=== PATIENT | female | born 1940 | race Caucasian/White ===

== ENCOUNTER 2016-10-13 14:35 | Inpatient (IN) | payer MEDICARE, MEDICAID ==
[~2016-10-13] VITALS: Ht 154.9 cm; Wt 93.0 kg
[~2016-10-13 14:35] MED LIST: NKM
[2016-10-13 15:24] VITALS: BP 95/71
--- NOTE | 2016-10-13 16:12 | Diagnostic Imaging Report ---
Indication: SOB Technique: One view of the chest Comparison: 04/25/2008 Findings: There is mild generalized interstitial prominence, which is less striking than that seen on prior study. The heart size is upper limits normal. Pleural spaces are probably clear. Impression: Generalized interstitial prominence. Acuity indeterminate, could represent venous congestion. Correlate with clinical findings.
[2016-10-13 16:26] LABS: ALANINE AMINOTRANSFERASE 16 U/L (3-33); ANION GAP 13 (5-15); ASPARTATE AMINO TRANSFERASE 21 U/L (5-40); CALCIUM 8.7 mg/dL (8.6-10.2); CARBON DIOXIDE 25 mEQ/L (20-30); CHLORIDE 105 mEQ/L (98-107); CREATININE 0.9 mg/dL (0.5-0.9); HEMOLYSIS 12; POTASSIUM 3.9 mEQ/L (3.4-4.9); SODIUM 143 mEQ/L (135-145); TOTAL PROTEIN 6.7 g/dL (6.6-8.7)
[2016-10-13 16:27] LABS: TROPONIN I < 0.30 ng/mL (<=0.30)
[2016-10-13 16:36] LABS: CKMB 3.9 ng/mL (< 3.8)
[2016-10-13 16:51] LABS: BILIRUBIN,DIRECT 0.3 mg/dL (0.1-0.3)
[2016-10-13 17:12] VITALS: BP 115/89
[2016-10-13 17:26] LABS: BASOPHILS % (AUTO) 1.3 % (0.0-2.0); EOSINOPHILS % (AUTO) 0.6 % (0.0-3.0); LYMPHOCYTES % (AUTO) 10.2 % (20.0-45.0); MEAN CORPUSCULAR HEMOGLOBIN 25.9 PG (27.0-31.0); MEAN CORPUSCULAR HGB CONC 30.6 G/DL (32.0-36.0); MEAN CORPUSCULAR VOLUME 85 FL (80-99); MEAN PLATELET VOLUME 7.2 FL (6.5-10.1); MONOCYTES % (AUTO) 8.5 % (1.0-10.0); NEUTROPHILS % (AUTO) 79.3 % (45.0-75.0); PLATELET COUNT 217 K/UL (150-450); RED BLOOD COUNT 4.17 M/UL (4.20-5.40); RED CELL DISTRIBUTION WIDTH 14.7 % (11.6-14.8); WHITE BLOOD COUNT 9.6 K/UL (4.8-10.8)
--- NOTE | 2016-10-13 17:51 | Emergency Room Report ---
History of Present Illness General Chief Complaint: Chest Pain Source: Patient, Medical Record Present Illness HPI 76 YO F sent from PMD's for AFB with RVR to 140s. Patient c/o left sided chest pain and ?SOB. Deneis cough, fever/chills. Feels well otherwise. Not providing additional HPI at this time. No other info from EMS. No family present. Known Atrial Fib. Allergies: Coded Allergies: No Known Allergies (Verified , 04/16/08) Patient History Past Medical History: arrhyth Past Surgical History: unable to obtain Pertinent Family History: unable to obtain Social History: Denies: alcohol use, drug use, smoking Immunizations: UTD Reviewed Nursing Documentation: PMH: Agreed, PSxH: Agreed Nursing Documentation-PMH Past Medical History Deferred: No Family Available Past Medical History: No History, Except For Hx Cardiac Problems: Yes - high cholesterol, CHF Review of Systems All Other Systems: negative except mentioned in HPI Physical Exam Vital Signs Date Time Temp Pulse Resp B/P Pulse Ox O2 Delivery O2 Flow Rate FiO2 10/13/16 14:32 97.5 76 16 112/87 98 Room Air 10/13/16 16:30 15.0 30 Sp02 EP Interpretation: reviewed, abnormal General Appearance: no apparent distress, alert, GCS 15, non-toxic, mild distress Head: normocephalic, atraumatic Eyes: bilateral eye EOMI, bilateral eye PERRL, bilateral eye normal inspection ENT: normal ENT inspection, hearing grossly normal, normal voice Neck: normal inspection, full range of motion, supple, no bony tend Respiratory: normal inspection, no respiratory distress, no retraction, no accessory muscle use, no wheezing, rales Cardiovascular #1: no edema, no gallop, no JVD, irregularly irregular Gastrointestinal: normal inspection, normal bowel sounds, non tender, soft, no guarding, no hernia Genitourinary: no CVA tenderness Musculoskeletal: normal inspection, back normal, normal range of motion, Dawit' s Sign negative Neurologic: normal inspection, alert, oriented x3, responsive, 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, motor strength/tone normal, speech normal Psychiatric: normal inspection, judgement/insight normal, mood/affect normal Skin: normal inspection, normal color, no rash Procedures Critical Care Time Critical Care Time CC time of 45 minutes for this 76 YOF in Atrial fib with RVR with SOB and left sided chest pain DDx includes COPD exacerbation, ACS, PNA, acute on chronic CHF Presents acute SOB warm, chest pain VS significant for hypotension, atrial fib to 110 Patient immediately placed on front desk monitor with rhytm strip and STAT EKG was obtained which showed Atrial Fib and V4-6 ST depressions No hypoxia. Afebrile. Lungs with pulm congestion on exam Initial management indicated: CBC, CMP, troponin, BNP, CXR, BIPAP Highly suspected: CHF exacerbation d/t run of Atrial fib with RVR Possible interventions - BIPAP, additional Abx. CC time included frequent re-exams, interpretation of labs, imaging, adjustment of Abx Critical care time of 45 minutes does not include reportable procedures. Medical Decision Making Medicare Attestation I Jodie Blackwell MD hereby attest that the medical record entry for date of service, 08/23/16 accurately reflects signatures/notations that I made in my capacity as MD when I treated/diagnosed the above listed Medicare beneficiary. I attest that this information is true, accurate and complete to the best of my knowledge. I understand that any falsification, omission, or concealment of material fact may subject me to administrative, civil, or criminal liability. This patient warrants hospital admission for extreme of age and has a condition that cannot be treated as outpatient. Diagnostic Impression: Primary Impression: Atrial fibrillation Qualified Codes: I48.2 - Chronic atrial fibrillation Additional Impressions: Hypotension Qualified Codes: I95.9 - Hypotension, unspecified CHF (congestive heart failure) Qualified Codes: I50.9 - Heart failure, unspecified ER Course 76 YO F with run of Atrial fib with RVR and possible ischemia on ECG. Now hypotensive. Not in RVR. Afebrile. Improved with Bipap CXR shows ?pulm congestion. No obvious PNA Initial troponin 0. Endorsed to Dr Godwin for [facility] admission at 530pm EKG Diagnostic Results Rate: other - Atrial fib, ST depressions in lateral leads ST Segments: no acute changes ASA given to the pt in ED: No Rhythm Strip Diag. Results EP Interpretation: yes Rate: 110 Rhythm: no ectopy, other - PVCs Chest X-Ray Diagnostic Results EP Interpretation: Yes Findings: no pneumothorax, no acute cardiopulmonary disease, other - bilateral pulm vascular congestion Last Vital Signs Date Time Temp Pulse Resp B/P Pulse Ox O2 Delivery O2 Flow Rate FiO2 10/13/16 17:38 97.5 124 16 115/89 100 Bi-pap 15.0 30 Disposition: ADMITTED INPATIENT Condition: Critical Referrals: NON PHYSICIAN (PCP) JODIE BLACKWELL M.D. Oct 13, 2016 17:51
[2016-10-13] MEDS ORDERED: EDARBI80 MG ORAL (18:57)
[2016-10-13] MEDS ORDERED: AMIODARONE HCL100 MG ORAL (18:58)
[2016-10-13] MEDS ORDERED: BYSTOLIC5 MG ORAL (18:58)
[2016-10-13] MEDS ORDERED: XARELTO20 MG ORAL (19:00)
[2016-10-13] MEDS ORDERED: ABILIFY10 MG ORAL (19:00)
[2016-10-13] MEDS ORDERED: LEVOTHYROXINE100 MCG ORAL (19:00)
[2016-10-13] MEDS ORDERED: NORVASC2.5 MG ORAL (19:01)
--- NOTE | 2016-10-13 19:29 | History and Physical ---
History of Present Illness General Date patient seen: Oct 13, 2016 Time patient seen: 19:27 Reason for Hospitalization: Chest Pain Present Illness HPI 76 YO F with a fib sent from PMD's for AFB with RVR to 140s. Patient c/o left sided chest pain and SOB. Deneis cough, fever/chills. Feels well otherwise. Allergies: Coded Allergies: No Known Allergies (Verified , 04/16/08) Medication History Scheduled Amiodarone Hcl (Amiodarone Hcl), 100 MG ORAL EVERY 8 HOURS, (Reported) Amlodipine Besylate (Norvasc), 2.5 MG ORAL DAILY, (Reported) Aripiprazole* (Abilify*), 10 MG ORAL DAILY, (Reported) Azilsartan Medoxomil (Edarbi), 80 MG ORAL DAILY, (Reported) Levothyroxine Sodium* (Levothyroxine Sodium*), 100 MCG ORAL DAILY, (Reported) Nebivolol Hcl (Bystolic), 5 MG ORAL DAILY, (Reported) No Known Medications* (NKM - No Known Medications*), 0 ., (Reported) Miscellaneous Medications Rivaroxaban (Xarelto), 20 MG ORAL, (Reported) Patient History Healthcare decision maker Resuscitation status Full Code Advanced Directive on File Past Medical/Surgical History Past Medical/Surgical History: (1) Atrial fibrillation (2) CHF (congestive heart failure) Family History Family History: Patient reports no known family medical history. Social History Social History: (1) No significant social history Review of Systems All Other Systems: negative except mentioned in HPI Physical Exam General Appearance: no apparent distress, alert HEENT: normocephalic, atraumatic, anicteric, mucous membranes moist, PERRL, EOMI, pharynx normal, no JVD Neck: non-tender, supple Respiratory/Chest: lungs clear, normal breath sounds, no respiratory distress, no accessory muscle use Cardiovascular/Chest: normal peripheral pulses, normal rate, regular rhythm Abdomen: normal bowel sounds, non tender, soft, no mass Extremities: non-tender, normal inspection Skin Exam: warm/dry 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, no motor/sensory deficits, alert Musculoskeletal: normal muscle bulk Last 24 Hour Vital Signs Date Time Temp Pulse Resp B/P Pulse Ox O2 Delivery O2 Flow Rate FiO2 10/13/16 19:20 141 19 100 Facial 30 10/13/16 18:30 30 10/13/16 17:38 97.5 124 16 115/89 100 Bi-pap 15.0 30 10/13/16 17:12 97.5 124 16 115/89 100 Bi-pap 30 10/13/16 16:42 30 10/13/16 16:30 71 18 100 Facial 15.0 30 10/13/16 16:30 71 18 Bi-pap 15.0 30 10/13/16 15:24 110 16 95/71 97 Room Air 10/13/16 15:08 76 16 Room Air 10/13/16 14:32 97.5 76 16 112/87 98 Room Air Laboratory Tests Test 10/13/16 15:38 White Blood Count 9.6 K/UL (4.8-10.8) Red Blood Count 4.17 M/UL (4.20-5.40) L Hemoglobin 10.8 G/DL (12.0-16.0) L Hematocrit 35.2 % (37.0-47.0) L Mean Corpuscular Volume 85 FL (80-99) Mean Corpuscular Hemoglobin 25.9 PG (27.0-31.0) L Mean Corpuscular Hemoglobin Concent 30.6 G/DL (32.0-36.0) L Red Cell Distribution Width 14.7 % (11.6-14.8) Platelet Count 217 K/UL (150-450) Mean Platelet Volume 7.2 FL (6.5-10.1) Neutrophils (%) (Auto) 79.3 % (45.0-75.0) H Lymphocytes (%) (Auto) 10.2 % (20.0-45.0) L Monocytes (%) (Auto) 8.5 % (1.0-10.0) Eosinophils (%) (Auto) 0.6 % (0.0-3.0) Basophils (%) (Auto) 1.3 % (0.0-2.0) Sodium Level 143 mEQ/L (135-145) Potassium Level 3.9 mEQ/L (3.4-4.9) Chloride Level 105 mEQ/L (98-107) Carbon Dioxide Level 25 mEQ/L (20-30) Anion Gap 13 (5-15) Blood Urea Nitrogen 22 mg/dL (7-23) Creatinine 0.9 mg/dL (0.5-0.9) Estimat Glomerular Filtration Rate mL/min (>60) Glucose Level 108 mg/dL (74-106) H Calcium Level 8.7 mg/dL (8.6-10.2) Total Bilirubin 1.3 mg/dL (0.0-1.2) H Direct Bilirubin 0.3 mg/dL (0.1-0.3) Aspartate Amino Transf (AST/SGOT) 21 U/L (5-40) Alanine Aminotransferase (ALT/SGPT) 16 U/L (3-33) Alkaline Phosphatase 98 U/L (35-104) Total Creatine Kinase 87 U/L (26-140) Creatine Kinase MB 3.9 ng/mL (< 3.8) H Creatine Kinase MB Relative Index 4.4 Troponin I < 0.30 ng/mL (<=0.30) Total Protein 6.7 g/dL (6.6-8.7) Albumin 3.4 g/dL (3.5-5.2) L Globulin 3.3 g/dL Albumin/Globulin Ratio 1.0 (1.0-2.7) Height (Feet): 5 Height (Inches): 2.00 Weight (Pounds): 160 Assessment/Plan Problem List: (1) Atrial fibrillation ICD Codes: I48.91 - Unspecified atrial fibrillation SNOMED: 35171924 Qualifiers: Qualified Codes: I48.2 - Chronic atrial fibrillation (2) CHF (congestive heart failure) ICD Codes: I50.9 - Heart failure, unspecified SNOMED: 19650058 Qualifiers: Qualified Codes: I50.9 - Heart failure, unspecified (3) Hypotension ICD Codes: I95.9 - Hypotension, unspecified SNOMED: 75895072 Qualifiers: Qualified Codes: I95.9 - Hypotension, unspecified (4) Hypothyroidism ICD Codes: E03.9 - Hypothyroidism, unspecified SNOMED: 49042520 Status: progressing Assessment/Plan admit to [facility] telemetry monitoring f/u Cards cont amio cont Levo Partha Miller M.D. Oct 13, 2016 19:29
[2016-10-13 20:00] VITALS: BP 115/31
--- NOTE | 2016-10-13 20:27 | Consultation ---
Consult Note Consult Note Cardiology/ Cardiac EP for Dr Hightower Full consult dictated #[id number] 76 yo wf w/ hx of htn, morbid obesity and stage III ovarian CA also ? of PAF ( on xarelto and amiodarone at home) adm w/ 2-3 wk progressive dyspnea, LE edema as well as 2-3 d CP She is in CHF (? diastolic v systolic dysfunction) and rapid AF. Initial troponin negative REc: adm to telemetry. Lasix iv for pulm congestion. Inc amiodarone for rate control and poss conversion to SR. Continue bystolic .Continue Xarelto for CVA prevention. Check serial trop, ekgs to r/o mi, though doubt ACS. ECHO to assess LV systolic function. Supplemental 02/ bipap. TRAVON CAGLE Oct 13, 2016 20:27
[2016-10-13] MEDS: Amiodarone 200mg tab ORAL SCH (21:33)
[2016-10-14] VITALS (7 sets, daily range): BP systolic 104–137; BP diastolic 64–92
--- NOTE | 2016-10-14 01:28 | Consultation ---
DATE OF CONSULTATION: CARDIOLOGY CONSULT CONSULTING PHYSICIAN: Nereida Gutierrez M.D. REASON FOR CONSULT: Atrial fibrillation with rapid ventricular rate and shortness of breath. HISTORY OF PRESENT ILLNESS: The patient is a 76-year-old [place] woman (history obtained from current and previous chart and the patient's son) with a history of hypertension, schizophrenia, hypothyroidism, and possible paroxysmal atrial fibrillation. Her son states that over the past two to three weeks, she has been increasingly short of breath and also developing bilateral lower extremity edema. She has had chest pain over about the past three days. In addition, she has had diarrhea and loose stools over the past two weeks. No melena or blood per rectum. On presentation to the emergency room, she was in atrial fibrillation with ventricular rates of 140 to 150 beats per minute. She is admitted for further treatment. Cardiology evaluation was requested. MEDICATIONS: At home, Xarelto 20 mg daily, Edarbi 80 mg daily, Bystolic 5 mg daily, amiodarone 200 mg daily, levothyroxine 100 mcg daily, and Abilify 10 mg daily. ALLERGIES: No known drug allergies. PAST MEDICAL HISTORY: As noted above. 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 SOCIAL HISTORY: The patient lives with her son. She is a nonsmoker and does not drink alcohol. PHYSICAL EXAMINATION: VITAL SIGNS: Blood pressure is 115/89, pulse 124, irregularly irregular; respirations 22, and afebrile. GENERAL: Alert, obese white female, on BiPAP mask. HEENT: Normocephalic and atraumatic. Pupils are equal, round, and reactive to light. BiPAP mask in place. NECK: Supple. Jugular venous pressure is elevated. There are no audible carotid bruits. LUNGS: Shallow respirations. Tachypneic. No rales anteriorly or wheezes. HEART: Tachycardic. Irregularly irregular. S1, S2 with no murmur or S3. ABDOMEN: Obese, soft, and nontender. Healed midline surgical scar. EXTREMITIES: A 2 to 3+ pitting pedal to calf edema bilaterally LABORATORY AND DIAGNOSTIC DATA: Chest x-ray shows cardiomegaly and increased interstitial infiltrates bilaterally. EKG shows atrial fibrillation with a ventricular rate of 142 beats per minute, occasional premature ventricular complex or aberrantly conducted complex, nonspecific ST-segment and T-wave changes, and axis +40 degrees. LABORATORY DATA: Sodium 143, potassium 3.9, chloride 105, bicarbonate 25, BUN 22, and creatinine 0.9. Troponin less than 0.3. Hemoglobin 10.8, hematocrit 35, white blood count 9600, and platelets 217,000. ASSESSMENT AND RECOMMENDATIONS: The patient is a 76-year-old [place] woman with a history of hypertension, hypothyroidism, ovarian cancer, morbid obesity, and probable paroxysmal atrial fibrillation (the patient on amiodarone and Xarelto at home), who was now admitted with rapidly conducted atrial fibrillation of uncertain duration and signs and symptoms of congestive heart failure. She is on BiPAP ventilation. She remains in rapid atrial fibrillation. I would favor continuing Xarelto and we will increase amiodarone to 200 mg three times daily for better rate control. We will continue Bystolic. An echo will be obtained to evaluate left ventricular function and valves. Lasix will be given for pulmonary congestion with close monitoring of fluid status, electrolytes, and renal function. Serial troponin levels will be obtained though doubt acute coronary syndrome, given the clinical history. Further recommendations will be made based on her clinical course and results of the above testing. Nereida Gutierrez M.D. DR: JONAS JOB#: [id number] CC:
[2016-10-14] MEDS: Amiodarone 200mg tab ORAL SCH ×3 (05:55→22:18)
[2016-10-14 06:55] LABS: BASOPHILS % (AUTO) 0.5 % (0.0-2.0); EOSINOPHILS % (AUTO) 2.7 % (0.0-3.0); LYMPHOCYTES % (AUTO) 22.2 % (20.0-45.0); MEAN CORPUSCULAR HEMOGLOBIN 25.9 PG (27.0-31.0); MEAN CORPUSCULAR HGB CONC 31.2 G/DL (32.0-36.0); MEAN CORPUSCULAR VOLUME 83 FL (80-99); MEAN PLATELET VOLUME 7.8 FL (6.5-10.1); NEUTROPHILS % (AUTO) 61.6 % (45.0-75.0); PLATELET COUNT 224 K/UL (150-450); RED BLOOD COUNT 4.36 M/UL (4.20-5.40); WHITE BLOOD COUNT 9.9 K/UL (4.8-10.8)
[2016-10-14 07:24] LABS: ANION GAP 15 (5-15); CALCIUM 8.7 mg/dL (8.6-10.2); CARBON DIOXIDE 25 mEQ/L (20-30); CHLORIDE 105 mEQ/L (98-107); HEMOLYSIS 4; POTASSIUM 3.7 mEQ/L (3.4-4.9); SODIUM 145 mEQ/L (135-145)
[2016-10-14 07:25] LABS: TROPONIN I < 0.30 ng/mL (<=0.30)
[2016-10-14] MEDS: Xarelto 10mg tab ORAL SCH (07:45)
[2016-10-14] MEDS: ARIPiprazole 10mg tab ORAL SCH (07:45)
[2016-10-14] MEDS: Bystolic 2.5mg Tab ORAL SCH (07:46)
[2016-10-14] MEDS ORDERED: Amiodarone 200mg tab ORAL SCH (09:00)
--- NOTE | 2016-10-14 09:18 | Wound Care Consultation ---
Wound Assessment Wound Assessment #1: Wound Number: #1 Wound Present on Admission: Yes New Wound: No Status Change of Wound: No Wound Location Body Site Modif: mid Wound Location Body Site: other - forehead Wound Type: scab - scattered Frederic Test: Does not Frederic Wound Thickness: Partial Thickness Wound Length: 0.5 Wound Width: 1.5 Wound Depth: utd Percent of Wound Black/Brown: 100 - dry scabs intact Wound Drainage Amount: None Wound Drainage Odor: None/Absent Tissue Surrounding Wound: Intact Wound General Appearance: Open to air Wound Assessment #2: Wound Number: #2 Wound Present on Admission: Yes New Wound: No Status Change of Wound: No Wound Location Body Site Modif: upper, posterior Wound Location Body Site: back Wound Type: scab Frederic Test: Does not Frederic Wound Thickness: Partial Thickness Wound Length: 1.0 Wound Width: 0.5 Wound Depth: utd Percent of Wound Black/Brown: 100 - intact dry scab Wound Drainage Amount: None Wound Drainage Odor: None/Absent Tissue Surrounding Wound: Intact Wound General Appearance: Open to air Wound Assessment #3: Wound Number: #3 Wound Present on Admission: Yes New Wound: No Status Change of Wound: No Wound Location Body Site: abdominal fold Wound Type: rash - Intertrigo Percent of Wound Latt[place]/Red: 100 Wound Drainage Amount: None Wound Drainage Odor: None/Absent Tissue Surrounding Wound: Erythemic Wound General Appearance: Reddened, Open to air Wound Assessment #4: Wound Number: #4 Wound Present on Admission: Yes New Wound: No Status Change of Wound: No Wound Location Body Site Modif: right Wound Location Body Site: buttocks Wound Type: scab Frederic Test: Does not Frederic Wound Thickness: Partial Thickness Wound Length: 1.0 Wound Width: 1.0 Wound Depth: utd Percent of Wound Black/Brown: 100 - dry scab Wound Drainage Amount: None Wound Drainage Odor: None/Absent Tissue Surrounding Wound: Erythemic Wound General Appearance: Open to air Wound Assessment #5: Wound Number: #5 Wound Present on Admission: Yes New Wound: No Status Change of Wound: No Wound Location Body Site: perineal area Wound Type: other - redness Percent of Wound Lattimer/Red: 100 Wound Drainage Amount: None Wound Drainage Odor: None/Absent Tissue Surrounding Wound: Intact Wound General Appearance: Reddened, Open to air Wound Assessment #6: Wound Number: #6 Wound Present on Admission: Yes New Wound: No Status Change of Wound: No Wound Location Body Site Modif: left Wound Location Body Site: buttocks Wound Type: scab - scratches with small scattered scabs Wound Thickness: Partial Thickness Percent of Wound Lattimer/Red: 100 Wound Drainage Amount: None Wound Drainage Odor: None/Absent Tissue Surrounding Wound: Erythemic Wound General Appearance: Reddened, Open to air Wound Comment #1 Mid forehead scabs. #2 Posterior upper back scab. #3 Abdominal fold Intertrigo rash. #4 Right buttocks scab. #5 Perineal area redness. #6 Left buttock scattered scratches with small scattered scabs. Recommendation -Turn and reposition. -Keep clean and dry. -Optimize nutrition. -Keep abdominal folds clean and dry , apply Treatment as ordered. -Keep perineal area and buttocks dry , apply Treatment as ordered. -Float heels, apply heel protectors. -Avoid shear and friction. -Pressure reducing mattress for skin management and prevention. -Assess and follow up with MD for any changes of condition. BELEN SHELLEY Oct 14, 2016 09:18
[2016-10-14] MEDS ORDERED: Norco 5mg/325mg tab ORAL PRN (10:45)
--- NOTE | 2016-10-14 14:03 | General Progress Note ---
Assessment/Plan Problem List: (1) Atrial fibrillation ICD Codes: I48.91 - Unspecified atrial fibrillation SNOMED: 73784246 Qualifiers: Qualified Codes: I48.2 - Chronic atrial fibrillation (2) CHF (congestive heart failure) ICD Codes: I50.9 - Heart failure, unspecified SNOMED: 21405272 Qualifiers: Qualified Codes: I50.9 - Heart failure, unspecified (3) Hypotension ICD Codes: I95.9 - Hypotension, unspecified SNOMED: 89831381 Qualifiers: Qualified Codes: I95.9 - Hypotension, unspecified (4) Hypothyroidism ICD Codes: E03.9 - Hypothyroidism, unspecified SNOMED: 97076501 Assessment/Plan admitted to [facility] telemetry monitoring noted to be in A fib with RVR to 140s o/n on tele f/u Cards cont amio; s/p bolus x 1 of 150; amio increased to 200 tid cont Bipap s/p Lasix 40 mg x1 IV; monitor I and O cont bystolic cont Levo TH Tylenol and [place] prn pain Subjective Date patient seen: Oct 14, 2016 Time patient seen: 14:02 Allergies: Coded Allergies: No Known Allergies (Verified , 04/16/08) Subjective pt c/o substernal and L sided cp Objective Last 24 Hour Vital Signs Date Time Temp Pulse Resp B/P Pulse Ox O2 Delivery O2 Flow Rate FiO2 10/14/16 12:07 98.1 103 14 109/72 99 Bi-pap 30 10/14/16 10:45 96 19 100 Facial 30 10/14/16 10:00 30 10/14/16 09:41 78 24 100 Facial 30 10/14/16 08:59 97 10/14/16 08:00 30 10/14/16 07:41 98.1 148 19 129/92 100 Nasal Cannula 3.0 10/14/16 07:09 156 23 99 10/14/16 05:21 132 24 100 Facial 30 10/14/16 04:30 96.6 132 20 107/74 99 Mechanical Ventilator 30 10/14/16 04:00 30 10/14/16 03:30 127 28 100 Facial 30 10/14/16 01:00 117 10/14/16 00:50 130 26 100 Facial 30 10/14/16 00:27 96.4 132 18 137/71 99 Mechanical Ventilator 30 10/14/16 00:00 94 1/26/17 00:00 30 10/14/16 00:00 30 10/13/16 23:10 112 30 100 Facial 30 10/13/16 22:07 138 41 100 Facial 30 10/13/16 20:00 123 10/13/16 20:00 97.2 139 15 115/31 100 Mechanical Ventilator 30 10/13/16 20:00 30 10/13/16 19:20 141 19 100 Facial 30 10/13/16 18:30 30 10/13/16 17:38 97.5 124 16 115/89 100 Bi-pap 15.0 30 10/13/16 17:12 97.5 124 16 115/89 100 Bi-pap 30 10/13/16 16:42 30 10/13/16 16:30 71 18 100 Facial 15.0 30 10/13/16 16:30 71 18 Bi-pap 15.0 30 10/13/16 15:24 110 16 95/71 97 Room Air 10/13/16 15:08 76 16 Room Air 10/13/16 14:32 97.5 76 16 112/87 98 Room Air Intake and Output 10/13/16 10/14/16 19:00 07:00 Intake Total 0 ml 650 ml Output Total 550 ml Balance 0 ml 100 ml Intake Oral 0 ml 50 ml IV Total 600 ml Output Urine Total 550 ml # Voids 5 # Bowel Movements 2 Laboratory Tests 10/13/16 15:38: White Blood Count 9.6, Red Blood Count 4.17L, Hemoglobin 10.8L, Hematocrit 35.2L , Mean Corpuscular Volume 85, Mean Corpuscular Hemoglobin 25.9L, Mean Corpuscular Hemoglobin Concent 30.6L, Red Cell Distribution Width 14.7, Platelet Count 217, Mean Platelet Volume 7.2, Neutrophils (%) (Auto) 79.3H, Lymphocytes (%) (Auto) 10.2L, Monocytes (%) (Auto) 8.5, Eosinophils (%) (Auto) 0.6, Basophils (%) (Auto) 1.3, Sodium Level 143, Potassium Level 3.9, Chloride Level 105, Carbon Dioxide Level 25, Anion Gap 13, Blood Urea Nitrogen 22, Creatinine 0.9, Estimat Glomerular Filtration Rate , Glucose Level 108H, Calcium Level 8.7, Total Bilirubin 1.3H, Direct Bilirubin 0.3, Aspartate Amino Transf (AST/SGOT) 21, Alanine Aminotransferase (ALT/SGPT) 16, Alkaline Phosphatase 98, Total Creatine Kinase 87, Creatine Kinase MB 3.9H, Creatine Kinase MB Relative Index 4.4, Troponin I < 0.30, Total Protein 6.7, Albumin 3.4L , Globulin 3.3, Albumin/Globulin Ratio 1.0 10/14/16 04:00: White Blood Count 9.9, Red Blood Count 4.36, Hemoglobin 11.3L, Hematocrit 36.2L , Mean Corpuscular Volume 83, Mean Corpuscular Hemoglobin 25.9L, Mean Corpuscular Hemoglobin Concent 31.2L, Red Cell Distribution Width 15.0H, Platelet Count 224, Mean Platelet Volume 7.8, Neutrophils (%) (Auto) 61.6, Lymphocytes (%) (Auto) 22.2, Monocytes (%) (Auto) 13.0H, Eosinophils (%) (Auto) 2.7, Basophils (%) (Auto) 0.5, Sodium Level 145, Potassium Level 3.7, Chloride Level 105, Carbon Dioxide Level 25, Anion Gap 15, Blood Urea Nitrogen 23, Creatinine 1.0H, Estimat Glomerular Filtration Rate , Glucose Level 89, Calcium Level 8.7, Troponin I < 0.30, Pro-B-Type Natriuretic Peptide 4092H Height (Feet): 5 Height (Inches): 2.00 Weight (Pounds): 218 Objective General Appearance: no apparent distress, alert HEENT: normocephalic, atraumatic, anicteric, mucous membranes moist, PERRL, EOMI, pharynx normal, no JVD Neck: non-tender, supple Respiratory/Chest: +BIPAp; lungs clear, normal breath sounds, no respiratory distress, no accessory muscle use Cardiovascular/Chest: normal peripheral pulses, normal rate, regular rhythm Abdomen: normal bowel sounds, non tender, soft, no mass Extremities: non-tender, normal inspection Skin Exam: warm/dry 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 Oct 14, 2016 14:03
[2016-10-14] MEDS: Nystatin Powder 100,000 units/gm 15gm TOPIC SCH ×2 (15:13→17:57)
--- NOTE | 2016-10-14 15:20 | Cardiology Report ---
APPROVED REPORT EXAM: Two-dimensional and M-mode echocardiogram with Doppler and color Doppler. INDICATION Atrial Fibrillation M-Mode DIMENSIONS IVSd1.7 (0.7-1.1cm)Left Atrium (MM)5.4 (1.6-4.0cm) LVDd4.1 (3.5-5.6cm)Aortic Root2.5 (2.0-3.7cm) PWd1.0 (0.7-1.1cm)Aortic Cusp Exc.1.5 (1.5-2.0cm) LVDs3.1 (2.5-4.0cm) PWs1.5 cm Technically difficult study due to poor acoustic windows. Study quality precludes accurate assessment of regional wall motion. Normal left ventricular chamber size. Left ventricular ejection fraction estimated to be 45-50%. Mild left ventricular hypertrophy. Anterior Echo-free space, may be due to pericardial fat or effusion. No evidence of pericardial effusion. All other cardiac chamber sizes are within normal limits. Mild focal aortic valve sclerosis with adequate cusp excursion. Mildly thickened mitral valve leaflets with normal excursion. Mild mitral annulus and aortic root calcification. Pulmonic valve not well visualized. Normal tricuspid valve structure. IVC at normal size with physiologic collapse. A color flow and spectral Doppler study was performed and revealed: No aortic regurgitation. Trace mitral regurgitation. Mitral inflow velocities could not be dertermined due to A-Fib. Trace tricuspid regurgitation. Tricuspid systolic velocities suggests peak right ventricular systolic pressure of 17 mmHg. No pulmonic regurgitation present.
[2016-10-14 22:24] LABS: APPEARANCE,URINE CLEAR; KETONES,URINE NEGATIVE (NEGATIVE); LEUKOCYTE ESTERASE ,URINE 3+ (NEGATIVE); NITRITE,URINE POSITIVE (NEGATIVE); PH,URINE 5 (4.5-8.0); PROTEIN,URINE 1+ (NEGATIVE); UROBILINOGEN,URINE NORMAL MG/DL (0.0-1.0)
[2016-10-14 22:41] LABS: AMORPHOUS SEDIMENT,UR FEW /LPF; BACTERIA,URINE MODERATE /HPF; SQUAMOUS EPITHELIAL CELL,UR FEW /LPF (NONE/OCC)
[2016-10-15 03:49] VITALS: BP 125/86
[2016-10-15 04:43] LABS: BASOPHILS % (AUTO) 0.7 % (0.0-2.0); EOSINOPHILS % (AUTO) 4.1 % (0.0-3.0); LYMPHOCYTES % (AUTO) 18.2 % (20.0-45.0); MEAN CORPUSCULAR HEMOGLOBIN 25.8 PG (27.0-31.0); MEAN CORPUSCULAR VOLUME 83 FL (80-99); MEAN PLATELET VOLUME 8.1 FL (6.5-10.1); MONOCYTES % (AUTO) 11.3 % (1.0-10.0); NEUTROPHILS % (AUTO) 65.7 % (45.0-75.0); PLATELET COUNT 233 K/UL (150-450); RED BLOOD COUNT 4.08 M/UL (4.20-5.40); RED CELL DISTRIBUTION WIDTH 14.9 % (11.6-14.8); WHITE BLOOD COUNT 9.2 K/UL (4.8-10.8)
[2016-10-15 05:10] LABS: ALANINE AMINOTRANSFERASE 14 U/L (3-33); ALBUMIN/GLOBULIN RATIO 0.8 (1.0-2.7); ANION GAP 14 (5-15); ASPARTATE AMINO TRANSFERASE 18 U/L (5-40); CALCIUM 8.4 mg/dL (8.6-10.2); CARBON DIOXIDE 26 mEQ/L (20-30); CHLORIDE 104 mEQ/L (98-107); HEMOLYSIS 12; POTASSIUM 3.5 mEQ/L (3.4-4.9); SODIUM 144 mEQ/L (135-145); TOTAL PROTEIN 6.2 g/dL (6.6-8.7)
[2016-10-15] MEDS: Amiodarone 200mg tab ORAL SCH ×2 (05:42→14:22)
[2016-10-15 08:00] VITALS: BP 133/66
[2016-10-15] MEDS: ARIPiprazole 10mg tab ORAL SCH (08:43)
[2016-10-15] MEDS: Nystatin Powder 100,000 units/gm 15gm TOPIC SCH ×3 (08:43→17:47)
[2016-10-15] MEDS: Bystolic 2.5mg Tab ORAL SCH (08:43)
[2016-10-15] MEDS: Xarelto 10mg tab ORAL SCH (08:43)
[2016-10-15 12:00] VITALS: BP 130/71
[2016-10-15] MEDS ORDERED: Milk of Magnesia 30ml Ud ORAL ONE (12:00)
--- NOTE | 2016-10-15 12:46 | Diagnostic Imaging Report ---
Indication: Abdominal pain Comparison: 04/25/2008 Single view of the abdomen obtained Findings: Bowel gas pattern is nonspecific. No mass, ectopic calcifications, or abnormal gas collections are identified. The bones are osteopenic. There is a right dynamic hip screw. Degenerative changes of the spine noted. The heart is enlarged. Impression: No acute findings
--- NOTE | 2016-10-15 14:07 | General Progress Note ---
Assessment/Plan Problem List: (1) Atrial fibrillation ICD Codes: I48.91 - Unspecified atrial fibrillation SNOMED: 89934860 Qualifiers: Qualified Codes: I48.2 - Chronic atrial fibrillation (2) CHF (congestive heart failure) ICD Codes: I50.9 - Heart failure, unspecified SNOMED: 59424843 Qualifiers: Qualified Codes: I50.9 - Heart failure, unspecified (3) Hypotension ICD Codes: I95.9 - Hypotension, unspecified SNOMED: 98040970 Qualifiers: Qualified Codes: I95.9 - Hypotension, unspecified (4) Hypothyroidism ICD Codes: E03.9 - Hypothyroidism, unspecified SNOMED: 78006102 Assessment/Plan admitted to [facility] telemetry monitoring noted to be in A fib with RVR to 140s o/n on tele on hospital day 1; now rate controlled f/u Cards cont amio; s/p bolus x 1 of 150; amio increased to 200 tid dc Bipap s/p Lasix 40 mg x1 IV; cont qd; monitor I and O cont bystolic cont Levo TH; check tsh/ft4 Tylenol and [place] prn pain bowel regimen KUB Subjective Date patient seen: Oct 15, 2016 Time patient seen: 14:05 Allergies: Coded Allergies: No Known Allergies (Verified , 04/16/08) Subjective pt c/o ap Objective Last 24 Hour Vital Signs Date Time Temp Pulse Resp B/P Pulse Ox O2 Delivery O2 Flow Rate FiO2 10/15/16 12:00 96.4 112 19 130/71 95 Nasal Cannula 2.0 10/15/16 12:00 2.0 10/15/16 12:00 108 10/15/16 09:21 95 16 98 Facial 30 10/15/16 08:00 96.8 95 16 133/66 100 Bi-pap 30 10/15/16 08:00 105 10/15/16 07:39 30 10/15/16 07:10 67 16 100 Facial 30 10/15/16 05:04 126 16 100 Facial 30 10/15/16 04:00 30 10/15/16 03:58 97 10/15/16 03:49 96.8 91 16 125/86 100 10/15/16 02:55 128 15 100 Facial 30 10/15/16 00:50 122 16 99 Facial 30 10/15/16 00:00 30 10/14/16 23:54 102 10/14/16 23:49 97.5 93 18 111/72 99 10/14/16 22:40 118 14 99 Facial 30 10/14/16 20:45 73 20 99 Facial 30 10/14/16 20:00 30 10/14/16 20:00 85 10/14/16 20:00 97.5 102 16 104/77 100 10/14/16 19:15 111 15 99 Facial 30 10/14/16 17:38 100 10/14/16 17:05 71 15 100 Facial 30 10/14/16 16:00 30 10/14/16 16:00 94 10/14/16 15:54 97.2 78 16 110/64 100 10/14/16 14:55 97 18 100 Facial 30 Intake and Output 10/14/16 10/15/16 19:00 07:00 Intake Total 1050 ml 120 ml Balance 1050 ml 120 ml Intake Oral 1050 ml 120 ml # Voids 3 3 Laboratory Tests 10/14/16 22:00: Urine Color Pale yellow, Urine Appearance Clear, Urine pH 5, Urine Specific [employer] 1.015, Urine Protein 1+H, Urine Glucose (UA) Negative, Urine Ketones Negative, Urine Occult Blood 3+H, Urine Nitrite PositiveH, Urine Bilirubin Negative, Urine Urobilinogen Normal, Urine Leukocyte Esterase 3+H, Urine RBC 5- 10H, Urine WBC 10-15H, Urine Squamous Epithelial Cells Few, Urine Amorphous Sediment FewH, Urine Bacteria ModerateH 10/15/16 03:45: White Blood Count 9.2, Red Blood Count 4.08L, Hemoglobin 10.5L, Hematocrit 33.9L , Mean Corpuscular Volume 83, Mean Corpuscular Hemoglobin 25.8L, Mean Corpuscular Hemoglobin Concent 31.0L, Red Cell Distribution Width 14.9H, Platelet Count 233, Mean Platelet Volume 8.1, Neutrophils (%) (Auto) 65.7, Lymphocytes (%) (Auto) 18.2L, Monocytes (%) (Auto) 11.3H, Eosinophils (%) (Auto ) 4.1H, Basophils (%) (Auto) 0.7, Sodium Level 144, Potassium Level 3.5, Chloride Level 104, Carbon Dioxide Level 26, Anion Gap 14, Blood Urea Nitrogen 23, Creatinine 1.0H, Estimat Glomerular Filtration Rate , Glucose Level 97, Calcium Level 8.4L, Total Bilirubin 0.9, Aspartate Amino Transf (AST/SGOT) 18, Alanine Aminotransferase (ALT/SGPT) 14, Alkaline Phosphatase 88, Total Protein 6.2L, Albumin 2.9L, Globulin 3.3, Albumin/Globulin Ratio 0.8L Height (Feet): 5 Height (Inches): 2.00 Weight (Pounds): 220 Objective General Appearance: no apparent distress, alert HEENT: normocephalic, atraumatic, anicteric, mucous membranes moist, PERRL, EOMI, pharynx normal, no JVD Neck: non-tender, supple Respiratory/Chest: lungs clear, normal breath sounds, no respiratory distress, no accessory muscle use Cardiovascular/Chest: normal peripheral pulses, normal rate, regular rhythm Abdomen: normal bowel sounds, diffuse ap, soft, no mass Extremities: non-tender, normal inspection Skin Exam: warm/dry 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 Oct 15, 2016 14:07
[2016-10-15 15:13] LABS: THYROID STIMULATING HORMONE 27.25 uIU/mL (0.300-4.500)
[2016-10-15 16:00] VITALS: BP 135/71
[2016-10-15 20:00] VITALS: BP 119/54
--- NOTE | 2016-10-15 20:51 | Cardiology Progress Note ---
Assessment/Plan Problem List: (1) Atrial fibrillation (2) CHF (congestive heart failure) (3) Hypothyroidism Status: stable, progressing Status Narrative Mrs. Adame was adm w/ AF w/ RVR and decomp CHF - predom diastolic dysfunction. ECHO this adm w/ EF 40s, though technically difficult study. She is improving clinically - ventricular rates are controlled in AF, and dyspnea appears improved. However, wt has not decreased - i/os inaccurate. Difficult to determine if pt w / adequate diuresis. She is severely hypothyroid, possibly due to amiodarone. Assessment/Plan Will dc amiodarone and give b blockers for rate control in AF Continue Xarelto a-c for CVA prevention. Inc diuresis - lasix q 12 hrs and supplement K ? increase synthroid ? if pt taking dose as outpt Subjective ROS Limited/Unobtainable: Yes Subjective Mrs Adame appears less dyspneic. c/o chest pain, abd pain. fair historian Objective Last 24 Hour Vital Signs Date Time Temp Pulse Resp B/P Pulse Ox O2 Delivery O2 Flow Rate FiO2 10/15/16 20:00 98.7 91 20 119/54 99 Nasal Cannula 2.0 10/15/16 19:00 75 16 96 10/15/16 16:00 97.9 95 21 135/71 99 10/15/16 16:00 96 10/15/16 15:36 2.0 10/15/16 12:00 96.4 112 19 130/71 95 Nasal Cannula 2.0 10/15/16 12:00 2.0 10/15/16 12:00 108 10/15/16 09:21 95 16 98 Facial 30 10/15/16 08:00 96.8 95 16 133/66 100 Bi-pap 30 10/15/16 08:00 105 10/15/16 07:39 30 10/15/16 07:10 67 16 100 Facial 30 10/15/16 05:04 126 16 100 Facial 30 10/15/16 04:00 30 10/15/16 03:58 97 10/15/16 03:49 96.8 91 16 125/86 100 10/15/16 02:55 128 15 100 Facial 30 10/15/16 00:50 122 16 99 Facial 30 10/15/16 00:00 30 10/14/16 23:54 102 10/14/16 23:49 97.5 93 18 111/72 99 10/14/16 22:40 118 14 99 Facial 30 10/14/16 20:45 73 20 99 Facial 30 General Appearance: WD/WN, alert, obese EENT: PERRL/EOMI Neck: non-tender, no JVD Rhythm: Afib Cardiovascular: normal rate, irregularly irregular Respiratory/Chest: lungs clear - clear anteriorly Abdomen: non tender, soft, other - obese Extremities: trace edema Intake and Output 10/14/16 10/15/16 19:00 07:00 Intake Total 1050 ml 120 ml Balance 1050 ml 120 ml Intake Oral 1050 ml 120 ml # Voids 3 3 Laboratory Tests Test 10/14/16 22:00 10/15/16 03:45 Urine Color Pale yellow Urine Appearance Clear Urine pH 5 (4.5-8.0) Urine Specific [place] 1.015 (1.005-1.035) Urine Protein 1+ (NEGATIVE) H Urine Glucose (UA) Negative (NEGATIVE) Urine Ketones Negative (NEGATIVE) Urine Occult Blood 3+ (NEGATIVE) H Urine Nitrite Positive (NEGATIVE) H Urine Bilirubin Negative (NEGATIVE) Urine Urobilinogen Normal MG/DL (0.0-1.0) Urine Leukocyte Esterase 3+ (NEGATIVE) H Urine RBC 5-10 /HPF (0 - 2) H Urine WBC 10-15 /HPF (0 - 2) H Urine Squamous Epithelial Cells Few /LPF (NONE/OCC) Urine Amorphous Sediment Few /LPF (NONE) H Urine Bacteria Moderate /HPF (NONE) H White Blood Count 9.2 K/UL (4.8-10.8) Red Blood Count 4.08 M/UL (4.20-5.40) L Hemoglobin 10.5 G/DL (12.0-16.0) L Hematocrit 33.9 % (37.0-47.0) L Mean Corpuscular Volume 83 FL (80-99) Mean Corpuscular Hemoglobin 25.8 PG (27.0-31.0) L Mean Corpuscular Hemoglobin Concent 31.0 G/DL (32.0-36.0) L Red Cell Distribution Width 14.9 % (11.6-14.8) H Platelet Count 233 K/UL (150-450) Mean Platelet Volume 8.1 FL (6.5-10.1) Neutrophils (%) (Auto) 65.7 % (45.0-75.0) Lymphocytes (%) (Auto) 18.2 % (20.0-45.0) L Monocytes (%) (Auto) 11.3 % (1.0-10.0) H Eosinophils (%) (Auto) 4.1 % (0.0-3.0) H Basophils (%) (Auto) 0.7 % (0.0-2.0) Sodium Level 144 mEQ/L (135-145) Potassium Level 3.5 mEQ/L (3.4-4.9) Chloride Level 104 mEQ/L (98-107) Carbon Dioxide Level 26 mEQ/L (20-30) Anion Gap 14 (5-15) Blood Urea Nitrogen 23 mg/dL (7-23) Creatinine 1.0 mg/dL (0.5-0.9) H Estimat Glomerular Filtration Rate mL/min (>60) Glucose Level 97 mg/dL (74-106) Calcium Level 8.4 mg/dL (8.6-10.2) L Total Bilirubin 0.9 mg/dL (0.0-1.2) Aspartate Amino Transf (AST/SGOT) 18 U/L (5-40) Alanine Aminotransferase (ALT/SGPT) 14 U/L (3-33) Alkaline Phosphatase 88 U/L (35-104) Total Protein 6.2 g/dL (6.6-8.7) L Albumin 2.9 g/dL (3.5-5.2) L Globulin 3.3 g/dL Albumin/Globulin Ratio 0.8 (1.0-2.7) L Thyroid Stimulating Hormone (TSH) 27.250 uIU/mL (0.300-4.500) Free Thyroxine 0.87 ng/dL (0.86-1.85) TRAVON CAGLE Oct 15, 2016 20:50
[2016-10-16] VITALS: BP 120/78
[2016-10-16 04:00] VITALS: BP 120/85
[2016-10-16] MEDS: Norco 5mg/325mg tab ORAL PRN ×2 (05:49)
[2016-10-16 06:01] LABS: ANION GAP 11 (5-15); CALCIUM 8.6 mg/dL (8.6-10.2); CARBON DIOXIDE 33 mEQ/L (20-30); CHLORIDE 103 mEQ/L (98-107); CREATININE 1.1 mg/dL (0.5-0.9); HEMOLYSIS 0; MAGNESIUM 1.5 mg/dL (1.7-2.5); POTASSIUM 3.2 mEQ/L (3.4-4.9); SODIUM 147 mEQ/L (135-145)
[2016-10-16 08:00] VITALS: BP 112/65
[2016-10-16] MEDS: Nystatin Powder 100,000 units/gm 15gm TOPIC SCH ×3 (08:15→22:30)
[2016-10-16] MEDS: Xarelto 10mg tab ORAL SCH (08:16)
[2016-10-16] MEDS: Bystolic 2.5mg Tab ORAL SCH (08:16)
[2016-10-16] MEDS: ARIPiprazole 10mg tab ORAL SCH (08:16)
[2016-10-16] MEDS ORDERED: Milk of Magnesia 30ml Ud ORAL PRN (10:30)
[2016-10-16] MEDS: Pericolace tab ORAL SCH ×2 (10:50→18:26)
[2016-10-16] MEDS: cefTRIAXone 1 GM in D5W 55 ML IVPB SCH (11:37)
[2016-10-16 12:00] VITALS: BP 125/71
[2016-10-16] MEDS ORDERED: Metoprolol 5mg/5ml Inj IVP SCH (16:40)
[2016-10-16 16:45] VITALS: BP 136/66
[2016-10-16] MEDS ORDERED: NS 275ml ONE (17:18)
[2016-10-16] MEDS ORDERED: Tubing IV Secondary IV ONE (17:18)
[2016-10-16] MEDS ORDERED: Diltiazem 50mg/10ml Inj IV ONE (17:45)
--- NOTE | 2016-10-16 17:57 | Cardiac Electrophysiology PN ---
Assessment/Plan Problem List: (1) Atrial fibrillation (2) CHF (congestive heart failure) (3) Hypothyroidism Status: not improved, deteriorating Status Narrative Mrs. Adame has chronic AF and is now w/ RVR. she has chest pain. EKG shows lat inverted T waves - r/o ischemia or nonstemi She received iv metoprolol 5 mg x1 without significant decrease in HR ECHO this adm showed normal LV systolic function and wall motion, Assessment/Plan Continue b alphonse and add diltiazem - trial of iv diltiazem, followed by po if effective. Continue Xarelto a-c for CVA prevention. Check serial troponins, ekgs, to r/o mi, given hx of CP She is hypokalemic (due to lasix) - supplement. Will also dec lasix to qd, as pulm congestion has resolved. d/w RN Subjective ROS Limited/Unobtainable: No Subjective Mrs Adame is in rapid AF/ AFL w rates in the 140s. c/o CP, no dyspnea. Objective Last 24 Hour Vital Signs Date Time Temp Pulse Resp B/P Pulse Ox O2 Delivery O2 Flow Rate FiO2 10/16/16 17:37 144 142/102 10/16/16 16:45 97.3 144 20 136/66 99 Nasal Cannula 2.0 10/16/16 16:00 133 10/16/16 12:00 116 10/16/16 12:00 97.0 120 20 125/71 99 10/16/16 08:00 97.0 132 20 112/65 99 10/16/16 08:00 121 10/16/16 06:48 98.9 10/16/16 04:00 2.0 10/16/16 04:00 98.9 110 20 120/85 100 Nasal Cannula 2.0 10/16/16 04:00 103 10/16/16 01:00 104 16 96 3.0 10/16/16 00:00 97.7 126 24 120/78 100 Nasal Cannula 2.0 10/15/16 23:14 114 16 100 3.0 10/15/16 23:08 2.0 10/15/16 21:13 78 16 96 10/15/16 20:00 97 10/15/16 20:00 98.7 91 20 119/54 99 Nasal Cannula 2.0 10/15/16 20:00 2.0 10/15/16 19:00 75 16 96 General Appearance: WD/WN, no apparent distress, alert, obese EENT: PERRL/EOMI Neck: supple, no JVD Rhythm: Afib Cardiovascular: no gallop/murmur, tachycardia, irregularly irregular Respiratory/Chest: lungs clear - clear anteriorly Abdomen: non tender, soft Extremities: no swelling Intake and Output 10/15/16 10/16/16 19:00 07:00 Intake Total 440 ml 150 ml Balance 440 ml 150 ml Intake Oral 440 ml 150 ml # Voids 8 1 # Bowel Movements 1 1 Laboratory Tests Test 10/16/16 03:50 Sodium Level 147 mEQ/L (135-145) H Potassium Level 3.2 mEQ/L (3.4-4.9) L Chloride Level 103 mEQ/L (98-107) Carbon Dioxide Level 33 mEQ/L (20-30) H Anion Gap 11 (5-15) Blood Urea Nitrogen 20 mg/dL (7-23) Creatinine 1.1 mg/dL (0.5-0.9) H Estimat Glomerular Filtration Rate mL/min (>60) Glucose Level 92 mg/dL (74-106) Calcium Level 8.6 mg/dL (8.6-10.2) Magnesium Level 1.5 mg/dL (1.7-2.5) L Microbiology Date/Time Source Procedure Growth Status 10/14/16 22:00 Urine,Clean Catch Urine Culture - Preliminary Gram Negative Greg Resulted TRAVON CAGLE Oct 16, 2016 17:57
[2016-10-16] MEDS ORDERED: Digoxin 0.5mg/2ml Inj IVP ONE (18:15)
[2016-10-16] MEDS ORDERED: Diltiazem 50mg/10ml Inj IVP SCH (18:30)
[2016-10-16 20:00] VITALS: BP 124/66
[2016-10-17 00:18] VITALS: BP 125/60
[2016-10-17 03:43] VITALS: BP 123/67
[2016-10-17 06:13] LABS: TROPONIN I < 0.30 ng/mL (<=0.30)
[2016-10-17 08:00] VITALS: BP 123/61
[2016-10-17] MEDS: Bystolic 2.5mg Tab ORAL SCH (08:45)
[2016-10-17] MEDS: ARIPiprazole 10mg tab ORAL SCH (08:45)
[2016-10-17] MEDS: Xarelto 10mg tab ORAL SCH (08:46)
[2016-10-17] MEDS: Nystatin Powder 100,000 units/gm 15gm TOPIC SCH ×3 (08:46→18:09)
[2016-10-17] MEDS: Pericolace tab ORAL SCH ×2 (08:51→17:17)
[2016-10-17 10:22] LABS: ANION GAP 15 (5-15); CALCIUM 8.4 mg/dL (8.6-10.2); CARBON DIOXIDE 29 mEQ/L (20-30); CHLORIDE 97 mEQ/L (98-107); CREATININE 0.7 mg/dL (0.5-0.9); HEMOLYSIS 4; MAGNESIUM 1.9 mg/dL (1.7-2.5); POTASSIUM 3.8 mEQ/L (3.4-4.9); SODIUM 141 mEQ/L (135-145)
[2016-10-17] MEDS ORDERED: Fleet's Mineral Oil Enema RECTAL ONE (11:00)
[2016-10-17] MEDS: cefTRIAXone 1 GM in D5W 55 ML IVPB SCH (11:27)
[2016-10-17 12:00] VITALS: BP 125/56
--- NOTE | 2016-10-17 12:00 | Diagnostic Imaging Report ---
Indication: Chest Pain Comparison: 10/13/16 A single view chest radiograph was obtained. Findings: There is enlargement of the cardiac silhouette with pulmonary vascular redistribution and prominence, hazy vessel margins and the suggestion of interstitial edema consistent with CHF. Impression: Congestive heart failure
--- NOTE | 2016-10-17 12:11 | General Progress Note ---
Assessment/Plan Problem List: (1) Atrial fibrillation ICD Codes: I48.91 - Unspecified atrial fibrillation SNOMED: 90932144 Qualifiers: Qualified Codes: I48.2 - Chronic atrial fibrillation (2) CHF (congestive heart failure) ICD Codes: I50.9 - Heart failure, unspecified SNOMED: 56293370 Qualifiers: Qualified Codes: I50.9 - Heart failure, unspecified (3) Hypotension ICD Codes: I95.9 - Hypotension, unspecified SNOMED: 02111546 Qualifiers: Qualified Codes: I95.9 - Hypotension, unspecified (4) Hypothyroidism ICD Codes: E03.9 - Hypothyroidism, unspecified SNOMED: 97042848 Assessment/Plan admitted to [facility] telemetry monitoring noted to be in A fib with RVR to 140s o/n on tele on hospital day 1; now rate controlled f/u Cards started on Dilt s/p bolus x 1 of 150; amio increased to 200 tid dc Bipap s/p Lasix 40 mg x1 IV; cont qd; monitor I and O cont bystolic cont Levo TH; tsh/ft4 levels indicative of subclinical hypothyroidism Tylenol and [place] prn pain more aggressive bowel regimen started on Ceftriaxone 10/16 for E. Coli UTI KUB nl f/u RUQ u/s wound care for suprapubic dermatitis; likely fungal/william Subjective Date patient seen: Oct 16, 2016 Time patient seen: 12:09 Allergies: Coded Allergies: No Known Allergies (Verified , 04/16/08) Subjective pt c/o ap Objective Last 24 Hour Vital Signs Date Time Temp Pulse Resp B/P Pulse Ox O2 Delivery O2 Flow Rate FiO2 10/17/16 12:00 83 10/17/16 08:00 98.1 81 20 123/61 97 10/17/16 08:00 72 10/17/16 07:04 Nasal Cannula 2.0 28 10/17/16 07:04 100 Nasal Cannula 2.0 28 10/17/16 07:04 104 18 Nasal Cannula 2.0 28 10/17/16 06:03 84 141/81 10/17/16 04:06 86 10/17/16 03:43 96.8 90 18 123/67 95 Nasal Cannula 2.0 10/17/16 00:18 98.4 95 20 125/60 100 Nasal Cannula 2.0 10/17/16 00:02 87 10/16/16 22:30 80 142/102 10/16/16 20:00 97.7 106 20 124/66 99 Nasal Cannula 2.0 10/16/16 20:00 80 10/16/16 18:48 100 Nasal Cannula 2.0 28 10/16/16 18:48 113 20 Nasal Cannula 2.0 28 10/16/16 18:48 Nasal Cannula 2.0 28 10/16/16 18:26 114 10/16/16 17:37 144 142/102 10/16/16 16:45 97.3 144 20 136/66 99 Nasal Cannula 2.0 10/16/16 16:00 133 Intake and Output 10/16/16 10/17/16 19:00 07:00 Intake Total 870 ml 220 ml Balance 870 ml 220 ml Intake Oral 670 ml 220 ml IV Total 200 ml # Voids 5 4 # Bowel Movements 5 Laboratory Tests 10/17/16 04:20: Sodium Level 141, Potassium Level 3.8, Chloride Level 97L, Carbon Dioxide Level 29, Anion Gap 15, Blood Urea Nitrogen 19, Creatinine 0.7, Estimat Glomerular Filtration Rate , Glucose Level 83, Calcium Level 8.4L, Magnesium Level 1.9, Troponin I < 0.30, Pro-B-Type Natriuretic Peptide 2537H Height (Feet): 5 Height (Inches): 1.00 Weight (Pounds): 213 Objective General Appearance: no apparent distress, alert HEENT: normocephalic, atraumatic, anicteric, mucous membranes moist, PERRL, EOMI, pharynx normal, no JVD Neck: non-tender, supple Respiratory/Chest: lungs clear, normal breath sounds, no respiratory distress, no accessory muscle use Cardiovascular/Chest: normal peripheral pulses, normal rate, regular rhythm Abdomen: normal bowel sounds, diffuse ap, soft, no mass Extremities: non-tender, normal inspection Skin Exam: warm/dry 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 Oct 17, 2016 12:11
--- NOTE | 2016-10-17 12:16 | General Progress Note ---
Assessment/Plan Problem List: (1) Atrial fibrillation ICD Codes: I48.91 - Unspecified atrial fibrillation SNOMED: 08842069 Qualifiers: Qualified Codes: I48.2 - Chronic atrial fibrillation (2) CHF (congestive heart failure) ICD Codes: I50.9 - Heart failure, unspecified SNOMED: 51850762 Qualifiers: Qualified Codes: I50.9 - Heart failure, unspecified (3) Hypotension ICD Codes: I95.9 - Hypotension, unspecified SNOMED: 26016570 Qualifiers: Qualified Codes: I95.9 - Hypotension, unspecified (4) Hypothyroidism ICD Codes: E03.9 - Hypothyroidism, unspecified SNOMED: 00895077 Assessment/Plan admitted to [facility] telemetry monitoring noted to be in A fib with RVR to 140s o/n on tele on hospital day 1; now rate controlled f/u Cards started on Dilt s/p bolus x 1 of 150; amio increased to 200 tid dc Bipap s/p Lasix 40 mg x1 IV; cont qd; monitor I and O cont bystolic cont Levo TH; tsh/ft4 levels indicative of subclinical hypothyroidism Tylenol and [place] prn pain more aggressive bowel regimen started on Ceftriaxone 10/16 for E. Coli UTI KUB nl f/u RUQ u/s wound care for suprapubic dermatitis; likely fungal/william; cont Nystatin Subjective Date patient seen: Oct 17, 2016 Time patient seen: 12:14 Allergies: Coded Allergies: No Known Allergies (Verified , 04/16/08) Subjective pt still c/o ap; had small bm Objective Last 24 Hour Vital Signs Date Time Temp Pulse Resp B/P Pulse Ox O2 Delivery O2 Flow Rate FiO2 10/17/16 12:00 83 10/17/16 08:00 98.1 81 20 123/61 97 10/17/16 08:00 72 10/17/16 07:04 Nasal Cannula 2.0 28 10/17/16 07:04 100 Nasal Cannula 2.0 28 10/17/16 07:04 104 18 Nasal Cannula 2.0 28 10/17/16 06:03 84 141/81 10/17/16 04:06 86 10/17/16 03:43 96.8 90 18 123/67 95 Nasal Cannula 2.0 10/17/16 00:18 98.4 95 20 125/60 100 Nasal Cannula 2.0 10/17/16 00:02 87 10/16/16 22:30 80 142/102 10/16/16 20:00 97.7 106 20 124/66 99 Nasal Cannula 2.0 10/16/16 20:00 80 10/16/16 18:48 100 Nasal Cannula 2.0 28 10/16/16 18:48 113 20 Nasal Cannula 2.0 28 10/16/16 18:48 Nasal Cannula 2.0 28 10/16/16 18:26 114 10/16/16 17:37 144 142/102 10/16/16 16:45 97.3 144 20 136/66 99 Nasal Cannula 2.0 10/16/16 16:00 133 Intake and Output 10/16/16 10/17/16 19:00 07:00 Intake Total 870 ml 220 ml Balance 870 ml 220 ml Intake Oral 670 ml 220 ml IV Total 200 ml # Voids 5 4 # Bowel Movements 5 Laboratory Tests 10/17/16 04:20: Sodium Level 141, Potassium Level 3.8, Chloride Level 97L, Carbon Dioxide Level 29, Anion Gap 15, Blood Urea Nitrogen 19, Creatinine 0.7, Estimat Glomerular Filtration Rate , Glucose Level 83, Calcium Level 8.4L, Magnesium Level 1.9, Troponin I < 0.30, Pro-B-Type Natriuretic Peptide 2537H Height (Feet): 5 Height (Inches): 1.00 Weight (Pounds): 213 Objective General Appearance: no apparent distress, alert HEENT: normocephalic, atraumatic, anicteric, mucous membranes moist, PERRL, EOMI, pharynx normal, no JVD Neck: non-tender, supple Respiratory/Chest: lungs clear, normal breath sounds, no respiratory distress, no accessory muscle use Cardiovascular/Chest: normal peripheral pulses, normal rate, regular rhythm Abdomen: firm, distended, diffuse ap, soft, no mass Extremities: non-tender, normal inspection Skin Exam: warm/dry 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 Oct 17, 2016 12:16
[2016-10-17 16:00] VITALS: BP 100/67
--- NOTE | 2016-10-17 16:19 | Cardiac Electrophysiology PN ---
Assessment/Plan Problem List: (1) Atrial fibrillation (2) CHF (congestive heart failure) (3) Hypothyroidism Status: stable, progressing Status Narrative Mrs. Adame has chronic AF . Ventricular rates are now controlled, with diltiazem and bystolic. She is on anticoagulation. CHF /pulm congestion improving w/ iv lasix. She c/o CP, but this appears non cardiac, as is persistent, and troponins are negative. Assessment/Plan continue bystolic and diltiazem, as well as Xarelto for AF Continue lasix, kcl supplement. follow i/os, renal function, lytes Family requests oncology evaluation - pt being treated for ovarian CA. Subjective ROS Limited/Unobtainable: No Subjective Mrs Adame appears comfortable. She c/o chest , abd pain, however. No dyspnea or palpitations. . Objective Last 24 Hour Vital Signs Date Time Temp Pulse Resp B/P Pulse Ox O2 Delivery O2 Flow Rate FiO2 10/17/16 13:48 83 125/56 10/17/16 12:00 98.1 73 20 125/56 100 10/17/16 12:00 83 10/17/16 08:00 98.1 81 20 123/61 97 10/17/16 08:00 72 10/17/16 07:04 Nasal Cannula 2.0 10/17/16 07:04 100 Nasal Cannula 2.0 10/17/16 07:04 104 18 Nasal Cannula 2.0 10/17/16 06:03 84 141/81 10/17/16 04:06 86 10/17/16 03:43 96.8 90 18 123/67 95 Nasal Cannula 2.0 10/17/16 00:18 98.4 95 20 125/60 100 Nasal Cannula 2.0 10/17/16 00:02 87 10/16/16 22:30 80 142/102 10/16/16 20:00 97.7 106 20 124/66 99 Nasal Cannula 2.0 10/16/16 20:00 80 10/16/16 18:48 100 Nasal Cannula 2.0 10/16/16 18:48 113 20 Nasal Cannula 2.0 10/16/16 18:48 Nasal Cannula 2.0 10/16/16 18:26 114 10/16/16 17:37 144 142/102 10/16/16 16:45 97.3 144 20 136/66 99 Nasal Cannula 2.0 General Appearance: WD/WN, no apparent distress, alert, obese EENT: PERRL/EOMI Neck: non-tender, no JVD Rhythm: Afib Cardiovascular: no gallop/murmur, irregularly irregular Respiratory/Chest: lungs clear - clear anteriorly Abdomen: non tender, soft Extremities: non-tender, moderate edema - 2+ pitting edema of feet/ ankles bilat Intake and Output 10/16/16 10/17/16 19:00 07:00 Intake Total 870 ml 220 ml Balance 870 ml 220 ml Intake Oral 670 ml 220 ml IV Total 200 ml # Voids 5 4 # Bowel Movements 5 Laboratory Tests Test 10/17/16 04:20 Sodium Level 141 mEQ/L (135-145) Potassium Level 3.8 mEQ/L (3.4-4.9) Chloride Level 97 mEQ/L (98-107) L Carbon Dioxide Level 29 mEQ/L (20-30) Anion Gap 15 (5-15) Blood Urea Nitrogen 19 mg/dL (7-23) Creatinine 0.7 mg/dL (0.5-0.9) Estimat Glomerular Filtration Rate mL/min (>60) Glucose Level 83 mg/dL (74-106) Calcium Level 8.4 mg/dL (8.6-10.2) L Magnesium Level 1.9 mg/dL (1.7-2.5) Troponin I < 0.30 ng/mL (<=0.30) Pro-B-Type Natriuretic Peptide 2537 pg/mL (0-450) H Microbiology Date/Time Source Procedure Growth Status 10/14/16 22:00 Urine,Clean Catch Urine Culture - Final Escherichia Coli Complete TRAVON CAGLE Oct 17, 2016 16:19
[2016-10-17 20:00] VITALS: BP 108/63
[2016-10-18] VITALS: BP 134/69
[2016-10-18 04:00] VITALS: BP 116/53
[2016-10-18 05:24] LABS: BASOPHILS % (AUTO) 0.7 % (0.0-2.0); EOSINOPHILS % (AUTO) 1.8 % (0.0-3.0); LYMPHOCYTES % (AUTO) 13.8 % (20.0-45.0); MEAN CORPUSCULAR HEMOGLOBIN 25.9 PG (27.0-31.0); MEAN CORPUSCULAR HGB CONC 31.3 G/DL (32.0-36.0); MEAN CORPUSCULAR VOLUME 83 FL (80-99); MEAN PLATELET VOLUME 7.5 FL (6.5-10.1); MONOCYTES % (AUTO) 11.3 % (1.0-10.0); NEUTROPHILS % (AUTO) 72.5 % (45.0-75.0); PLATELET COUNT 286 K/UL (150-450); RED BLOOD COUNT 4.49 M/UL (4.20-5.40); RED CELL DISTRIBUTION WIDTH 14.8 % (11.6-14.8); WHITE BLOOD COUNT 12.4 K/UL (4.8-10.8)
[2016-10-18 05:57] LABS: ALANINE AMINOTRANSFERASE 12 U/L (3-33); ANION GAP 13 (5-15); ASPARTATE AMINO TRANSFERASE 20 U/L (5-40); CALCIUM 8.9 mg/dL (8.6-10.2); CARBON DIOXIDE 34 mEQ/L (20-30); CHLORIDE 95 mEQ/L (98-107); CREATININE 0.9 mg/dL (0.5-0.9); HEMOLYSIS 8; POTASSIUM 4.3 mEQ/L (3.4-4.9); SODIUM 142 mEQ/L (135-145); TOTAL PROTEIN 6.7 g/dL (6.6-8.7)
[2016-10-18 07:01] LABS: BILIRUBIN,DIRECT 0.2 mg/dL (0.1-0.3)
[2016-10-18 08:00] VITALS: BP_SYST 111; BP_DIAS 53; BP_DIAS 61
[2016-10-18] MEDS: Nystatin Powder 100,000 units/gm 15gm TOPIC SCH ×3 (09:12→18:03)
[2016-10-18] MEDS: ARIPiprazole 10mg tab ORAL SCH (09:13)
[2016-10-18] MEDS: Bystolic 2.5mg Tab ORAL SCH (09:13)
[2016-10-18] MEDS: Norco 5mg/325mg tab ORAL PRN ×2 (09:13→18:02)
[2016-10-18] MEDS: Pericolace tab ORAL SCH ×2 (09:13→18:01)
[2016-10-18] MEDS: Xarelto 10mg tab ORAL SCH (09:14)
--- NOTE | 2016-10-18 11:03 | General Progress Note ---
Assessment/Plan Problem List: (1) Atrial fibrillation ICD Codes: I48.91 - Unspecified atrial fibrillation SNOMED: 41023331 Qualifiers: Qualified Codes: I48.2 - Chronic atrial fibrillation (2) CHF (congestive heart failure) ICD Codes: I50.9 - Heart failure, unspecified SNOMED: 44927494 Qualifiers: Qualified Codes: I50.9 - Heart failure, unspecified (3) Hypotension ICD Codes: I95.9 - Hypotension, unspecified SNOMED: 93131260 Qualifiers: Qualified Codes: I95.9 - Hypotension, unspecified (4) Hypothyroidism ICD Codes: E03.9 - Hypothyroidism, unspecified SNOMED: 15473764 Assessment/Plan admitted to [facility] telemetry monitoring noted to be in A fib with RVR to 140s o/n on tele on hospital day 1; now rate controlled f/u Cards started on Dilt s/p bolus x 1 of 150; amio increased to 200 tid; now d/c'd dc Bipap s/p Lasix 40 mg x1 IV; cont qd; monitor I and O cont bystolic cont Levo TH; tsh/ft4 levels indicative of subclinical hypothyroidism Tylenol and [place] prn pain more aggressive bowel regimen started on Ceftriaxone 10/16 for E. Coli UTI KUB nl f/u RUQ u/s wound care for suprapubic dermatitis; likely fungal/william; cont Nystatin f/u with oncology; per family, pt has h/o ovarian ca which may be contributing to abdominal sx Subjective Date patient seen: Oct 18, 2016 Time patient seen: 11:02 Allergies: Coded Allergies: No Known Allergies (Verified , 04/16/08) Subjective pt still c/o ap Objective Last 24 Hour Vital Signs Date Time Temp Pulse Resp B/P Pulse Ox O2 Delivery O2 Flow Rate FiO2 10/18/16 10:12 98.4 10/18/16 08:00 100.0 107 20 111/53 99 Nasal Cannula 10.0 10/18/16 08:00 100.0 107 20 111/61 99 Nasal Cannula 10.0 10/18/16 07:17 Nasal Cannula 2.0 10/18/16 07:17 97 Nasal Cannula 2.0 10/18/16 07:17 87 16 Nasal Cannula 2.0 10/18/16 06:18 127 119/53 10/18/16 04:00 98.4 124 18 116/53 95 Nasal Cannula 2.0 10/18/16 03:32 101 10/18/16 00:00 97 10/18/16 00:00 98.1 124 20 134/69 94 Nasal Cannula 2.0 10/17/16 20:56 77 108/63 10/17/16 20:00 77 10/17/16 20:00 98.2 79 18 108/63 100 Nasal Cannula 2.0 10/17/16 19:29 96 Nasal Cannula 2.0 28 10/17/16 19:29 Nasal Cannula 2.0 28 10/17/16 19:28 86 18 Nasal Cannula 2.0 28 10/17/16 16:00 98.4 69 20 100/67 99 10/17/16 13:48 83 125/56 10/17/16 12:00 98.1 73 20 125/56 100 10/17/16 12:00 83 Intake and Output 10/17/16 10/18/16 19:00 07:00 Intake Total 570 ml 750 ml Balance 570 ml 750 ml Intake Oral 460 ml 750 ml IV Total 110 ml # Voids 3 5 # Bowel Movements 3 2 Laboratory Tests 10/18/16 04:35: White Blood Count 12.4H, Red Blood Count 4.49, Hemoglobin 11.6L, Hematocrit 37.2 , Mean Corpuscular Volume 83, Mean Corpuscular Hemoglobin 25.9L, Mean Corpuscular Hemoglobin Concent 31.3L, Red Cell Distribution Width 14.8, Platelet Count 286, Mean Platelet Volume 7.5, Neutrophils (%) (Auto) 72.5, Lymphocytes (%) (Auto) 13.8L, Monocytes (%) (Auto) 11.3H, Eosinophils (%) (Auto ) 1.8, Basophils (%) (Auto) 0.7, Sodium Level 142, Potassium Level 4.3, Chloride Level 95L, Carbon Dioxide Level 34H, Anion Gap 13, Blood Urea Nitrogen 16, Creatinine 0.9, Estimat Glomerular Filtration Rate , Glucose Level 139H, Calcium Level 8.9, Total Bilirubin 1.3H, Direct Bilirubin 0.2, Aspartate Amino Transf (AST/SGOT) 20, Alanine Aminotransferase (ALT/SGPT) 12, Alkaline Phosphatase 95, Pro-B-Type Natriuretic Peptide 2570H, Total Protein 6.7, Albumin 3.5, Globulin 3.2, Albumin/Globulin Ratio 1.0 Height (Feet): 5 Height (Inches): 1.00 Weight (Pounds): 205 Objective General Appearance: no apparent distress, alert HEENT: normocephalic, atraumatic, anicteric, mucous membranes moist, PERRL, EOMI, pharynx normal, no JVD Neck: non-tender, supple Respiratory/Chest: lungs clear, normal breath sounds, no respiratory distress, no accessory muscle use Cardiovascular/Chest: normal peripheral pulses, normal rate, regular rhythm Abdomen: firm, less distended, minimal ttp, soft Extremities: non-tender, normal inspection Skin Exam: warm/dry 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 Oct 18, 2016 11:03
[2016-10-18 12:00] VITALS: BP 113/72
--- NOTE | 2016-10-18 12:38 | Cardiology Report ---
APPROVED REPORT EKG Measurement Heart [id number] Atrial fibrillation with premature ventricular or aberrantly conducted complexes Possible Inferior infarct, age undetermined Abnormal ECG
[2016-10-18] MEDS: cefTRIAXone 1 GM in D5W 55 ML IVPB SCH (12:53)
--- NOTE | 2016-10-18 15:16 | Physician Query ---
PLEASE COMPLETE THE FORM BEFORE SIGNING Dear Dr. Berkowitz Date September Healthcare Administrative Assistant/CDS Wes Pike CDS Healthcare Administrative Assistant/CDS Phone #: [phone] Exercise your independent professional judgment when responding to query. Questions asked do not imply particular answer is desired or expected. We greatly appreciate your clarification on this issue. Clinical Documentation States: Patient complained of Shortness of Breath and left sided chest pain. Clinical Findings Show: RR:_41,30 tachypnea with shortness of breath, Irregular On BIPAP upon admission Please clarify if the patient had any of the following conditions based on the above clinical findings: []Respiratory Failure [X] Acute [] Chronic (on home O2) []Acute on Chronic [X] Acute Respiratory Distress [] Acute Respiratory Insufficiency [] Respiratory failure due to trauma [] Respiratory insufficiency due to trauma [] Unable to determine [] Other: Condition Present on Admission: [X] Yes [] No []Clinically Undeterminable Please also document in your Progress Notes and/or Discharge Summary and indicate if the condition was present on admission. Partha Berkowitz M.D. Date/Time [facility]
[2016-10-18 16:00] VITALS: BP 111/47
--- NOTE | 2016-10-18 19:50 | Cardiology Progress Note ---
Assessment/Plan Problem List: (1) Atrial fibrillation (2) CHF (congestive heart failure) (3) Hypothyroidism Status: stable, unchanged Status Narrative Mrs. Adame has chronic AF . Ventricular rates are now controlled, with diltiazem and bystolic. She is on chronic anticoagulation w/ Xarelto. CHF /pulm congestion is resolving w/ iv lasix. BNP remains elevated, but improved from admission. Assessment/Plan Continue rate control rx, bystolic, cardizem , for AF Xarelto for cva prevention Continue iv lasix, k supplement, for chf Family requests oncology eval. - Pt w abd discomfort, and receiving rx as outpt for ovarian ca. Subjective ROS Limited/Unobtainable: No Subjective Mrs Adame c/o diffuse abd discomfort Objective Last 24 Hour Vital Signs Date Time Temp Pulse Resp B/P Pulse Ox O2 Delivery O2 Flow Rate FiO2 10/18/16 19:08 Nasal Cannula 2.0 28 10/18/16 19:07 69 16 Nasal Cannula 2.0 28 10/18/16 19:07 95 Nasal Cannula 2.0 28 10/18/16 16:00 96 10/18/16 16:00 98.1 81 20 111/47 100 Nasal Cannula 2.0 10/18/16 13:23 110 122/55 10/18/16 12:00 97.7 96 18 113/72 96 Nasal Cannula 5.0 10/18/16 10:12 98.4 10/18/16 08:00 93 10/18/16 08:00 100.0 107 20 111/53 99 Nasal Cannula 10.0 10/18/16 08:00 100.0 107 20 111/61 99 Nasal Cannula 10.0 10/18/16 07:17 Nasal Cannula 2.0 28 10/18/16 07:17 97 Nasal Cannula 2.0 28 10/18/16 07:17 87 16 Nasal Cannula 2.0 28 10/18/16 06:18 127 119/53 10/18/16 04:00 98.4 124 18 116/53 95 Nasal Cannula 2.0 10/18/16 03:32 101 10/18/16 00:00 97 10/18/16 00:00 98.1 124 20 134/69 94 Nasal Cannula 2.0 10/17/16 20:56 77 108/63 10/17/16 20:00 77 10/17/16 20:00 98.2 79 18 108/63 100 Nasal Cannula 2.0 General Appearance: WD/WN, alert, obese Neck: supple, no JVD Rhythm: Afib Cardiovascular: no gallop/murmur, tachycardia, irregularly irregular Respiratory/Chest: lungs clear - clear anteriorly Abdomen: normal bowel sounds, soft, other - mild diffuse tenderness Extremities: no swelling Intake and Output 10/17/16 10/18/16 19:00 07:00 Intake Total 570 ml 750 ml Balance 570 ml 750 ml Intake Oral 460 ml 750 ml IV Total 110 ml # Voids 3 5 # Bowel Movements 3 2 Laboratory Tests Test 10/18/16 04:35 White Blood Count 12.4 K/UL (4.8-10.8) H Red Blood Count 4.49 M/UL (4.20-5.40) Hemoglobin 11.6 G/DL (12.0-16.0) L Hematocrit 37.2 % (37.0-47.0) Mean Corpuscular Volume 83 FL (80-99) Mean Corpuscular Hemoglobin 25.9 PG (27.0-31.0) L Mean Corpuscular Hemoglobin Concent 31.3 G/DL (32.0-36.0) L Red Cell Distribution Width 14.8 % (11.6-14.8) Platelet Count 286 K/UL (150-450) Mean Platelet Volume 7.5 FL (6.5-10.1) Neutrophils (%) (Auto) 72.5 % (45.0-75.0) Lymphocytes (%) (Auto) 13.8 % (20.0-45.0) L Monocytes (%) (Auto) 11.3 % (1.0-10.0) H Eosinophils (%) (Auto) 1.8 % (0.0-3.0) Basophils (%) (Auto) 0.7 % (0.0-2.0) Sodium Level 142 mEQ/L (135-145) Potassium Level 4.3 mEQ/L (3.4-4.9) Chloride Level 95 mEQ/L (98-107) L Carbon Dioxide Level 34 mEQ/L (20-30) H Anion Gap 13 (5-15) Blood Urea Nitrogen 16 mg/dL (7-23) Creatinine 0.9 mg/dL (0.5-0.9) Estimat Glomerular Filtration Rate mL/min (>60) Glucose Level 139 mg/dL (74-106) H Calcium Level 8.9 mg/dL (8.6-10.2) Total Bilirubin 1.3 mg/dL (0.0-1.2) H Direct Bilirubin 0.2 mg/dL (0.1-0.3) Aspartate Amino Transf (AST/SGOT) 20 U/L (5-40) Alanine Aminotransferase (ALT/SGPT) 12 U/L (3-33) Alkaline Phosphatase 95 U/L (35-104) Pro-B-Type Natriuretic Peptide 2570 pg/mL (0-450) H Total Protein 6.7 g/dL (6.6-8.7) Albumin 3.5 g/dL (3.5-5.2) Globulin 3.2 g/dL Albumin/Globulin Ratio 1.0 (1.0-2.7) TRAVON CAGLE Oct 18, 2016 19:50
[2016-10-18 20:00] VITALS: BP 114/53
[2016-10-19] VITALS: BP 107/65
[2016-10-19 04:00] VITALS: BP 122/72
[2016-10-19 05:52] LABS: ALANINE AMINOTRANSFERASE 11 U/L (3-33); ALBUMIN/GLOBULIN RATIO 0.7 (1.0-2.7); ANION GAP 12 (5-15); ASPARTATE AMINO TRANSFERASE 16 U/L (5-40); CALCIUM 8.6 mg/dL (8.6-10.2); CARBON DIOXIDE 32 mEQ/L (20-30); CHLORIDE 100 mEQ/L (98-107); CREATININE 0.7 mg/dL (0.5-0.9); HEMOLYSIS 2; POTASSIUM 3.7 mEQ/L (3.4-4.9); SODIUM 144 mEQ/L (135-145); TOTAL PROTEIN 6.6 g/dL (6.6-8.7)
[2016-10-19 08:00] VITALS: BP 141/73
[2016-10-19] MEDS: Bystolic 2.5mg Tab ORAL SCH (09:06)
[2016-10-19] MEDS: ARIPiprazole 10mg tab ORAL SCH (09:07)
[2016-10-19] MEDS: Pericolace tab ORAL SCH ×2 (09:07→16:12)
[2016-10-19] MEDS: Xarelto 10mg tab ORAL SCH (09:07)
[2016-10-19] MEDS: Nystatin Powder 100,000 units/gm 15gm TOPIC SCH ×3 (09:08→16:13)
[2016-10-19 12:00] VITALS: BP 135/97
[2016-10-19] MEDS: cefTRIAXone 1 GM in D5W 55 ML IVPB SCH (13:25)
--- NOTE | 2016-10-19 13:54 | General Progress Note ---
Assessment/Plan Problem List: (1) Atrial fibrillation ICD Codes: I48.91 - Unspecified atrial fibrillation SNOMED: 70125529 Qualifiers: Qualified Codes: I48.2 - Chronic atrial fibrillation (2) CHF (congestive heart failure) ICD Codes: I50.9 - Heart failure, unspecified SNOMED: 32233168 Qualifiers: Qualified Codes: I50.9 - Heart failure, unspecified (3) Hypotension ICD Codes: I95.9 - Hypotension, unspecified SNOMED: 85183089 Qualifiers: Qualified Codes: I95.9 - Hypotension, unspecified (4) Hypothyroidism ICD Codes: E03.9 - Hypothyroidism, unspecified SNOMED: 61076456 Assessment/Plan admitted to [facility] telemetry monitoring noted to be in A fib with RVR to 140s o/n on tele on hospital day 1; now rate controlled f/u Cards started on Dilt s/p bolus x 1 of 150; amio increased to 200 tid; now d/c'd dc Bipap s/p Lasix 40 mg x1 IV; cont qd; monitor I and O cont bystolic cont Levo TH; tsh/ft4 levels indicative of subclinical hypothyroidism Tylenol and [place] prn pain more aggressive bowel regimen started on Ceftriaxone 10/16 for E. Coli UTI KUB nl f/u RUQ u/s wound care for suprapubic dermatitis; likely fungal/william; cont Nystatin f/u with oncology; per family, pt has h/o ovarian ca which may be contributing to abdominal sx; f/u abd u/s Subjective Date patient seen: Oct 19, 2016 Time patient seen: 13:49 Allergies: Coded Allergies: No Known Allergies (Verified , 04/16/08) Subjective no acute events o/n Objective Last 24 Hour Vital Signs Date Time Temp Pulse Resp B/P Pulse Ox O2 Delivery O2 Flow Rate FiO2 10/19/16 13:30 107 135/97 10/19/16 12:00 97.9 107 20 135/97 100 Nasal Cannula 2.0 10/19/16 08:00 93 10/19/16 08:00 98.6 98 21 141/73 100 Nasal Cannula 2.0 10/19/16 07:39 70 18 Nasal Cannula 2.0 28 10/19/16 07:39 97 Nasal Cannula 2.0 28 10/19/16 07:39 Nasal Cannula 2.0 28 10/19/16 06:31 98 122/72 10/19/16 04:00 96.4 98 18 122/72 99 Nasal Cannula 2.0 10/19/16 03:49 112 10/19/16 00:00 97.7 113 20 107/65 99 Nasal Cannula 2.0 10/18/16 23:55 89 10/18/16 21:37 75 114/53 10/18/16 20:00 99 10/18/16 20:00 98.4 75 18 114/53 100 Nasal Cannula 2.0 10/18/16 19:08 Nasal Cannula 2.0 28 10/18/16 19:07 69 16 Nasal Cannula 2.0 28 10/18/16 19:07 95 Nasal Cannula 2.0 28 10/18/16 16:00 96 10/18/16 16:00 98.1 81 20 111/47 100 Nasal Cannula 2.0 Intake and Output 10/18/16 10/19/16 19:00 07:00 Intake Total 695 ml 300 ml Balance 695 ml 300 ml Intake Oral 640 ml 300 ml IV Total 55 ml # Voids 3 5 Laboratory Tests 10/19/16 03:55: Sodium Level 144, Potassium Level 3.7, Chloride Level 100, Carbon Dioxide Level 32H, Anion Gap 12, Blood Urea Nitrogen 17, Creatinine 0.7, Estimat Glomerular Filtration Rate , Glucose Level 93, Calcium Level 8.6, Total Bilirubin 1.3H, Direct Bilirubin [Pending], Aspartate Amino Transf (AST/SGOT) 16, Alanine Aminotransferase (ALT/SGPT) 11, Alkaline Phosphatase 89, Total Protein 6.6, Albumin 2.9L, Globulin 3.7, Albumin/Globulin Ratio 0.7L Height (Feet): 5 Height (Inches): 1.00 Weight (Pounds): 207 Objective General Appearance: no apparent distress, alert HEENT: normocephalic, atraumatic, anicteric, mucous membranes moist, PERRL, EOMI, pharynx normal, no JVD Neck: non-tender, supple Respiratory/Chest: lungs clear, normal breath sounds, no respiratory distress, no accessory muscle use Cardiovascular/Chest: normal peripheral pulses, normal rate, regular rhythm Abdomen: less distended, obese, no ttp, soft Extremities: non-tender, normal inspection Skin Exam: warm/dry 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 Oct 19, 2016 13:54
[2016-10-19 16:00] VITALS: BP 104/53
--- NOTE | 2016-10-19 17:36 | Cardiac Electrophysiology PN ---
Assessment/Plan Problem List: (1) Atrial fibrillation (2) CHF (congestive heart failure) (3) Hypothyroidism Status: stable, progressing Status Narrative Mrs. Adame has persistent (? new onset) AF and presented w/ diastolic CHF in setting of rapid ventricular rates. She is anticoagulated chronically w/ Xarelto. Her pulm congestion has cleared w/ lasix iv and ventricular rates are now controlled w/ b blockers and ca channel blockers. She has ovarian CA and is s/p surgery and chemotherapy. Assessment/Plan Continue rate control rx, bystolic, cardizem , for AF Xarelto for cva prevention Will change lasix to po. Followup labs in am. Physical therapy eval - increase mobility. Subjective ROS Limited/Unobtainable: No Subjective Mrs Adame has no new c/o Objective Last 24 Hour Vital Signs Date Time Temp Pulse Resp B/P Pulse Ox O2 Delivery O2 Flow Rate FiO2 10/19/16 17:12 99.9 10/19/16 16:50 96 10/19/16 16:00 100.9 82 18 104/53 100 Nasal Cannula 2.0 10/19/16 13:30 107 135/97 10/19/16 12:00 94 10/19/16 12:00 97.9 107 20 135/97 100 Nasal Cannula 2.0 10/19/16 08:00 93 10/19/16 08:00 98.6 98 21 141/73 100 Nasal Cannula 2.0 10/19/16 07:39 70 18 Nasal Cannula 2.0 28 10/19/16 07:39 97 Nasal Cannula 2.0 28 10/19/16 07:39 Nasal Cannula 2.0 28 10/19/16 06:31 98 122/72 10/19/16 04:00 96.4 98 18 122/72 99 Nasal Cannula 2.0 10/19/16 03:49 112 10/19/16 00:00 97.7 113 20 107/65 99 Nasal Cannula 2.0 10/18/16 23:55 89 10/18/16 21:37 75 114/53 10/18/16 20:00 99 10/18/16 20:00 98.4 75 18 114/53 100 Nasal Cannula 2.0 10/18/16 19:08 Nasal Cannula 2.0 28 10/18/16 19:07 69 16 Nasal Cannula 2.0 28 10/18/16 19:07 95 Nasal Cannula 2.0 28 General Appearance: WD/WN, no apparent distress, obese EENT: PERRL/EOMI Neck: supple, no JVD Rhythm: Afib Cardiovascular: normal rate, no gallop/murmur Respiratory/Chest: lungs clear Abdomen: non tender, soft Extremities: trace edema - trace pedal edema bilat Intake and Output 10/18/16 10/19/16 19:00 07:00 Intake Total 695 ml 300 ml Balance 695 ml 300 ml Intake Oral 640 ml 300 ml IV Total 55 ml # Voids 3 5 Laboratory Tests Test 10/19/16 03:55 Sodium Level 144 mEQ/L (135-145) Potassium Level 3.7 mEQ/L (3.4-4.9) Chloride Level 100 mEQ/L (98-107) Carbon Dioxide Level 32 mEQ/L (20-30) H Anion Gap 12 (5-15) Blood Urea Nitrogen 17 mg/dL (7-23) Creatinine 0.7 mg/dL (0.5-0.9) Estimat Glomerular Filtration Rate mL/min (>60) Glucose Level 93 mg/dL (74-106) Calcium Level 8.6 mg/dL (8.6-10.2) Total Bilirubin 1.3 mg/dL (0.0-1.2) H Direct Bilirubin Pending Aspartate Amino Transf (AST/SGOT) 16 U/L (5-40) Alanine Aminotransferase (ALT/SGPT) 11 U/L (3-33) Alkaline Phosphatase 89 U/L (35-104) Total Protein 6.6 g/dL (6.6-8.7) Albumin 2.9 g/dL (3.5-5.2) L Globulin 3.7 g/dL Albumin/Globulin Ratio 0.7 (1.0-2.7) TRAVON PELLETIER Oct 19, 2016 17:36
[2016-10-19 20:01] VITALS: BP 118/51
--- NOTE | 2016-10-19 21:06 | General Progress Note ---
Assessment/Plan Assessment/Plan Assessment: 1. Ovarian cancer - s/p PATRICIA/BSO per patient with Dr. Ruby at [facility], is s/p chemotherapy as well x 6 cycles, now with abd pain concerning for CHF v recurrence. CA125 is pending. US of abdomen reviewed this am, does not show any kaia masses and pelvic US is pending 2. Anemia 2/2 chronic disease - stable 3. CHF potential exacerbation 4. Atrial fibrillation with RVR in the 140s is on xarelto 5. E.coli UTI is on abx Recommendations: - Monitor counts - Anemia workup has been reviewed - Imaging has been reviewed (US abd) - Abx as needed/prn - Followup on cards recs - DVT ppx with xarelto - Followup on ca-125 -->consider CT if elevated - Followup with [facility] [employer]-onc - DW Staff Sincerely, Ki Roman MD Subjective Constitutional: Reports: no symptoms HEENT: Reports: no symptoms Cardiovascular: Reports: no symptoms Respiratory: Reports: no symptoms Gastrointestinal/Abdominal: Reports: poor fluid intake Genitourinary: Reports: no symptoms Neurologic/Psychiatric: Reports: no symptoms Endocrine: Reports: no symptoms Hematologic/Lymphatic: Reports: anemia Allergies: Coded Allergies: No Known Allergies (Verified , 04/16/08) Subjective stable, no bleeding reported Objective Last 24 Hour Vital Signs Date Time Temp Pulse Resp B/P Pulse Ox O2 Delivery O2 Flow Rate FiO2 10/19/16 20:01 98.9 91 18 118/51 97 Nasal Cannula 2.0 10/19/16 20:00 81 10/19/16 19:30 83 20 Nasal Cannula 2.0 28 10/19/16 19:30 98 Nasal Cannula 2.0 28 10/19/16 19:30 Nasal Cannula 2.0 28 10/19/16 17:12 99.9 10/19/16 16:50 96 10/19/16 16:00 100.9 82 18 104/53 100 Nasal Cannula 2.0 10/19/16 13:30 107 135/97 10/19/16 12:00 94 10/19/16 12:00 97.9 107 20 135/97 100 Nasal Cannula 2.0 10/19/16 08:00 93 10/19/16 08:00 98.6 98 21 141/73 100 Nasal Cannula 2.0 10/19/16 07:39 70 18 Nasal Cannula 2.0 28 10/19/16 07:39 97 Nasal Cannula 2.0 28 10/19/16 07:39 Nasal Cannula 2.0 28 10/19/16 06:31 98 122/72 10/19/16 04:00 96.4 98 18 122/72 99 Nasal Cannula 2.0 10/19/16 03:49 112 10/19/16 00:00 97.7 113 20 107/65 99 Nasal Cannula 2.0 10/18/16 23:55 89 10/18/16 21:37 75 114/53 Intake and Output 10/18/16 10/19/16 19:00 07:00 Intake Total 695 ml 300 ml Balance 695 ml 300 ml Intake Oral 640 ml 300 ml IV Total 55 ml # Voids 3 5 Laboratory Tests 10/19/16 03:55: Sodium Level 144, Potassium Level 3.7, Chloride Level 100, Carbon Dioxide Level 32H, Anion Gap 12, Blood Urea Nitrogen 17, Creatinine 0.7, Estimat Glomerular Filtration Rate , Glucose Level 93, Calcium Level 8.6, Total Bilirubin 1.3H, Direct Bilirubin [Pending], Aspartate Amino Transf (AST/SGOT) 16, Alanine Aminotransferase (ALT/SGPT) 11, Alkaline Phosphatase 89, Total Protein 6.6, Albumin 2.9L, Globulin 3.7, Albumin/Globulin Ratio 0.7L Height (Feet): 5 Height (Inches): 1.00 Weight (Pounds): 207 General Appearance: no apparent distress EENT: TMs normal Neck: supple Cardiovascular: regular rhythm Respiratory/Chest: normal breath sounds Abdomen: soft Extremities: non-tender Edema: 1+ Leg (L), 1+ Leg (R) Edema: mild edema Neurologic: alert Skin: warm/dry Ki Roman Oct 19, 2016 21:06
[2016-10-20] VITALS: BP 123/51
[2016-10-20 04:00] VITALS: BP 120/58
[2016-10-20 05:01] LABS: BASOPHILS % (AUTO) 1.2 % (0.0-2.0); EOSINOPHILS % (AUTO) 4.1 % (0.0-3.0); LYMPHOCYTES % (AUTO) 15.3 % (20.0-45.0); MEAN CORPUSCULAR HEMOGLOBIN 26.4 PG (27.0-31.0); MEAN CORPUSCULAR HGB CONC 32.4 G/DL (32.0-36.0); MEAN CORPUSCULAR VOLUME 81 FL (80-99); MEAN PLATELET VOLUME 7.8 FL (6.5-10.1); MONOCYTES % (AUTO) 11.8 % (1.0-10.0); NEUTROPHILS % (AUTO) 67.6 % (45.0-75.0); PLATELET COUNT 266 K/UL (150-450); RED BLOOD COUNT 4.07 M/UL (4.20-5.40); RED CELL DISTRIBUTION WIDTH 14.7 % (11.6-14.8); WHITE BLOOD COUNT 10.1 K/UL (4.8-10.8)
[2016-10-20 05:31] LABS: ALANINE AMINOTRANSFERASE 9 U/L (3-33); ALBUMIN/GLOBULIN RATIO 0.7 (1.0-2.7); ANION GAP 9 (5-15); ASPARTATE AMINO TRANSFERASE 14 U/L (5-40); CALCIUM 8.3 mg/dL (8.6-10.2); CARBON DIOXIDE 34 mEQ/L (20-30); CHLORIDE 98 mEQ/L (98-107); CREATININE 0.7 mg/dL (0.5-0.9); HEMOLYSIS 0; POTASSIUM 3.4 mEQ/L (3.4-4.9); SODIUM 141 mEQ/L (135-145); TOTAL PROTEIN 6.4 g/dL (6.6-8.7)
[2016-10-20 08:00] VITALS: BP 137/63
[2016-10-20] MEDS ORDERED: Furosemide 40mg tab ORAL SCH (09:00)
[2016-10-20] MEDS: Pericolace tab ORAL SCH (09:03)
[2016-10-20] MEDS: Nystatin Powder 100,000 units/gm 15gm TOPIC SCH ×2 (09:03→12:34)
[2016-10-20] MEDS: Xarelto 10mg tab ORAL SCH (09:03)
[2016-10-20] MEDS: Bystolic 2.5mg Tab ORAL SCH (09:03)
[2016-10-20] MEDS: ARIPiprazole 10mg tab ORAL SCH (09:03)
--- NOTE | 2016-10-20 11:45 | General Progress Note ---
Assessment/Plan Assessment/Plan Assessment: 1. Ovarian cancer - s/p PATRICIA/BSO per patient with Dr. Ruby at [facility], is s/p chemotherapy as well x 6 cycles, now with abd pain concerning for CHF v recurrence. CA125 is pending. US of abdomen reviewed this am, does not show any kaia masses and pelvic US is pending 2. Anemia 2/2 chronic disease - stable 3. CHF potential exacerbation 4. Atrial fibrillation with RVR in the 140s is on xarelto 5. E.coli UTI is on abx Recommendations: - Monitor counts - Anemia workup has been reviewed - Imaging has been reviewed (US abd) - Abx as needed/prn - Followup on cards recs - DVT ppx with xarelto - Followup on ca-125 -->consider CT if elevated - Followup with [facility] micro[employer]-onc - Staff Sincerely, Ki Roman MD Subjective Constitutional: Reports: no symptoms HEENT: Reports: no symptoms Cardiovascular: Reports: no symptoms Respiratory: Reports: no symptoms Gastrointestinal/Abdominal: Reports: no symptoms Genitourinary: Reports: no symptoms Neurologic/Psychiatric: Reports: anxiety Endocrine: Reports: no symptoms Hematologic/Lymphatic: Reports: anemia Allergies: Coded Allergies: No Known Allergies (Verified , 04/16/08) Subjective stable, potential d/c today Objective Last 24 Hour Vital Signs Date Time Temp Pulse Resp B/P Pulse Ox O2 Delivery O2 Flow Rate FiO2 10/20/16 08:00 97.7 109 19 137/63 96 Nasal Cannula 1.5 10/20/16 08:00 70 10/20/16 07:08 75 18 Nasal Cannula 2.0 28 10/20/16 07:08 Nasal Cannula 2.0 28 10/20/16 07:08 97 Nasal Cannula 2.0 28 10/20/16 06:54 94 120/58 10/20/16 04:30 94 10/20/16 04:00 97.5 85 18 120/58 96 Nasal Cannula 10/20/16 00:00 97.8 94 19 123/51 97 Nasal Cannula 2.0 10/19/16 23:39 80 10/19/16 21:51 102 120/58 10/19/16 20:01 98.9 91 18 118/51 97 Nasal Cannula 2.0 10/19/16 20:00 81 10/19/16 19:30 83 20 Nasal Cannula 2.0 28 10/19/16 19:30 98 Nasal Cannula 2.0 28 10/19/16 19:30 Nasal Cannula 2.0 28 10/19/16 17:12 99.9 10/19/16 16:50 96 10/19/16 16:00 100.9 82 18 104/53 100 Nasal Cannula 2.0 10/19/16 13:30 107 135/97 10/19/16 12:00 94 10/19/16 12:00 97.9 107 20 135/97 100 Nasal Cannula 2.0 Intake and Output 10/19/16 10/20/16 19:00 07:00 Intake Total 415 ml Output Total 900 ml 850 ml Balance -485 ml -850 ml Intake Oral 360 ml IV Total 55 ml Output Urine Total 900 ml 850 ml # Voids 2 Laboratory Tests 10/20/16 04:25: White Blood Count 10.1, Red Blood Count 4.07L, Hemoglobin 10.7L, Hematocrit 33.1L, Mean Corpuscular Volume 81, Mean Corpuscular Hemoglobin 26.4L, Mean Corpuscular Hemoglobin Concent 32.4, Red Cell Distribution Width 14.7, Platelet Count 266, Mean Platelet Volume 7.8, Neutrophils (%) (Auto) 67.6, Lymphocytes (% ) (Auto) 15.3L, Monocytes (%) (Auto) 11.8H, Eosinophils (%) (Auto) 4.1H, Basophils (%) (Auto) 1.2, Sodium Level 141, Potassium Level 3.4, Chloride Level 98, Carbon Dioxide Level 34H, Anion Gap 9, Blood Urea Nitrogen 16, Creatinine 0.7, Estimat Glomerular Filtration Rate , Glucose Level 102, Calcium Level 8.3L , Total Bilirubin 1.1, Direct Bilirubin [Pending], Aspartate Amino Transf (AST/ SGOT) 14, Alanine Aminotransferase (ALT/SGPT) 9, Alkaline Phosphatase 76, Total Protein 6.4L, Albumin 2.7L, Globulin 3.7, Albumin/Globulin Ratio 0.7L Height (Feet): 5 Height (Inches): 1.00 Weight (Pounds): 205 General Appearance: no apparent distress EENT: TMs normal Neck: non-tender Cardiovascular: normal rate Respiratory/Chest: lungs clear Abdomen: non tender Extremities: non-tender Edema: no edema noted Leg (L), no edema noted Leg (R) Edema: mild edema Neurologic: alert Ki Roman Oct 20, 2016 11:45
[2016-10-20 12:00] VITALS: BP 142/81
[2016-10-20] MEDS: cefTRIAXone 1 GM in D5W 55 ML IVPB SCH (12:32)
[2016-10-20 13:21] LABS: BILIRUBIN,DIRECT 0.2 mg/dL (0.1-0.3)
[2016-10-20 14:32] LABS: BILIRUBIN,DIRECT 0.2 mg/dL (0.1-0.3)
--- NOTE | 2016-10-20 15:22 | Discharge Summary ---
Discharge Summary Hospital Course Date of Admission Oct 13, 2016 at 16:05 Date of Discharge 10/20/16 Admitting Diagnosis Afib with RVR HPI Saundra Adame is a 76 year old female who was admitted on Oct 13, 2016 at 16: 05 for Afib With Rapid Ventricular Rate and found to be in acute CHF exacerbation and respiratory distress requiring BIPAP Consultations Cardiology Oncology Hospital Course Pt was admitted to [facility] for telemetry monitoring and Bipap. noted to be in A fib with RVR to 140s s/p Amio bolus x 1 of 150; amio increased to 200 tid; then d/c'd Cards consulted and pt started on Dilt and cont bystolic and achieved rate control s/p Lasix 40 mg IV qd with good diuresis; transitioned to po on dc day cont Levo TH; tsh/ft4 levels indicative of subclinical hypothyroidism Tylenol and [place] prn pain aggressive bowel regimen for constipation started on Ceftriaxone 10/16 for E. Coli UTI; transitioned to keflex on dc for 5 more days KUB nl wound care for suprapubic dermatitis; likely fungal/william; started on Nystatin f/u with oncology; per family, pt has h/o ovarian ca which may be contributing to abdominal pain and distention; f/u abd u/s Discharge Condition Upon Discharge: stable Discharge Disposition Patient was discharged to SNF/Subacute Facility(03) Discharge Diagnoses: (1) CHF (congestive heart failure) (2) Hypotension (3) Atrial fibrillation with RVR (4) Hypothyroidism (5) Acute respiratory failure Partha Berkowitz M.D. Oct 20, 2016 15:22
[2016-10-20 16:00] VITALS: BP 118/63
[2016-10-20] MEDS ORDERED: Tubing IV Secondary IV ONE (17:04)
[2016-10-20] MEDS ORDERED: NS 275ml ONE (17:04)
--- NOTE | 2016-10-21 12:59 | Diagnostic Imaging Report ---
Indication:Abdominal pain Technique: Grayscale and duplex Doppler imaging of the abdomen performed. Comparison: None Findings: Liver is enlarged measuring about 19 cm. The demonstrated part of the pancreas, aorta and IVC, both kidneys, spleen appear unremarkable. Most of the pancreas and aorta are not visualized well on this exam due to bowel gas. There is no biliary ductal dilatation identified. CBD is 5 mm in diameter. Doppler evaluation of the main portal vein shows patency. There is no ascites. No hydronephrosis seen. Impression: Hepatomegaly. Limited study due to bowel gas Apparent cholecystectomy
--- NOTE | 2016-10-22 13:37 | Consultation ---
DATE OF CONSULTATION: NOTE: VERY POOR INAUDIBLE AUDIO QUALITY DATE OF CONSULTATION: 10/18/2016 HEMATOLOGY/ONCOLOGY CONSULTATION REQUESTING PHYSICIAN: Patrha Berkowitz M.D. REASON FOR CONSULTATION: Evaluation of ovarian cancer and anemia. IDENTIFYING DATA: Dear Dr. Partha Berkowitz, The patient is a 76-year-old female with a past medical history significant for stage 3 ovarian carcinoma, morbid obesity, hypertension, and history of paroxysmal atrial fibrillation, on Xarelto as well as amiodarone, at this time presents to [facility] with progressive dyspnea and lower extremity edema. She has a history of CHF as well, evaluated by the leadite man. She continues to have abdominal pain and therefore hematology and oncology service was called for evaluation and treatment given her history of ovarian cancer and potential obliterans. PAST MEDICAL HISTORY: Atrial fibrillation, CHF as noted above and significant for diabetes mellitus, elevated LFTs, hypertension, and history of cardiac disease. PAST SURGICAL HISTORY: None known. ALLERGIES: No known drug allergies. MEDICATIONS: Rivaroxaban, , amlodipine, amiodarone, levothyroxine. SOCIAL HISTORY: No significant alcohol, tobacco, or illicit drug use. FAMILY HISTORY: Noncontributory. REVIEW OF SYSTEMS: Constitutional: No fever, chills, or night sweats. Skin: No rashes, lumps, or itching. HEENT: No headache, hearing, or vision changes. Pulmonary: No cough, sputum, or shortness of breath. Cardiovascular: No chest pain, tightness, or palpitations. Gastrointestinal: No nausea, vomiting, or diarrhea. Genitourinary: No dysuria, frequency, or urgency. Musculoskeletal: No joint swelling, muscle pain, or trauma. Neurological: No dizziness, fainting or seizures. PHYSICAL EXAMINATION: GENERAL: The patient is in no acute distress. VITAL SIGNS: Temperature is 98.1 degrees Fahrenheit, pulse 81, respiratory rate 16, blood pressure 111/71, and pulse oximetry 98% on 2 L nasal cannula. PULMONARY: Decreased breath sounds. CARDIOVASCULAR: Regular rhythm. No S3 or S4. GASTROINTESTINAL: Abdomen is soft, nontender, and nondistended. EXTREMITIES: Edema 1+. LABORATORY DATA: WBC 12.4, hemoglobin 11.6, hematocrit 37, platelet count 186,000. BUN 15 and creatinine 0.9. IMAGING: Chest x-ray 10/17 shows CHF and suggestive of . ASSESSMENT: 1. History of ovarian cancer stage III. She has been followed up by outside gynecology and oncology. The patient continues with abdominal pain. Concern for CHF and/or recurrence of ovarian cancer. We will obtain CA-125 as well as ultrasound. 2. Anemia of chronic disease. 3. . 4. Leukocytosis underlying infection. 5. Abdominal distention. 6. CHF. 7. Hypertension. 8. Atrial fibrillation. 9. . RECOMMENDATIONS: 1. Monitor counts. 2. We will obtain ultrasound of the abdomen to rule out splenomegaly. 3. We will obtain pelvic ultrasound to evaluate the ovaries. 4. We will obtain CA-125. 5. Consider to obtain CT scan and will need to obtain outside medical records in regard to patient's history of ovarian cancer. 6. Followup with Cardiology. 7. We will discuss with the patient's family if necessary, most of whom are [place] speaking. 8. Obtain followup in the future with Hematology clinic. 9. Continue Xarelto as well for atrial fibrillation. Thank you, Dr. Partha Berkowitz, for this kind referral. Please do not hesitate to contact me with any further questions. Ki Roman M.D. DR: SHAE JOB#: [id number] CC:
--- NOTE | 2016-11-09 23:32 | Physician Query ---
PLEASE COMPLETE THE QUESTION IN RED BEFORE SIGNINGTHANK YOU Dear Dr. Berkowitz Date: 11/09/2016 [employer]/CDS Name: Mirella Dumont, CCS,DATA ENTRY ASSISTANT Exercise your independent professional judgment when responding to query. Question asked do not imply a particular answer is desired/expected. Clinical Documentation States: Nemo Adame is a 76 year old female who was admitted on Oct 13, 2016 at 16:05 for Afib With Rapid Ventricular Rate and found to be in acute CHF exacerbation and respiratory distress requiring BIPAP "Heart Failure / CHF" documented in Discharge summary -Discharge Diagnoses: (1) CHF (congestive heart failure) Clinical Findings Show: BNP- 10/18/2016 2750 Echocardiogram- EF 50-55% Please Clarify: Acuity: [X] Acute [] Chronic [] Acute on Chronic Type : [] Systolic [] Diastolic [X] Systolic & Diastolic (Combined) [] Left Heart failure [] Other: Etiology: [X] CHF due to Hypertension [] Cardiomyopathy [] Valvular Heart Disease [] Coronary Artery Disease [] Unable to determine [] Other: Condition Present on Admission: [X] Yes [] No []Clinically Undeterminable Please also document in your Progress Notes and/or Discharge Summary and indicate if the condition was present on admission. _Partha Berkowitz __11/17/16 Partha Berkowitz M.D. Date & Time [facility]
== END 2016-10-20 17:05 | DRG 291 ==
LOC: EDBD 14:35 → EMR 16:04 → 2E 16:05 → EDBEDREQ 16:37 → EDBEDREQTM 17:09 → EDBEDREQ 17:09 → EDBEDREQSVC 17:09 → 2W 17:17
PROC: 5A09457 Assistance with Respiratory Ventilation, 24-96 Consecutive Hours, Continuous Positive Airway Pressure (ICD-10-PCS; principal; 2016-10-13)
DX: I11.0 Hypertensive heart disease with heart failure (principal); J96.00 Acute respiratory failure, unspecified whether with hypoxia or hypercapnia; I95.9 Hypotension, unspecified; N39.0 Urinary tract infection, site not specified; C56.9 Malignant neoplasm of unspecified ovary; E66.2 Morbid (severe) obesity with alveolar hypoventilation; I48.2 Chronic atrial fibrillation; E11.9 Type 2 diabetes mellitus without complications; I50.43 Acute on chronic combined systolic (congestive) and diastolic (congestive) heart failure; B96.20 Unspecified Escherichia coli [E. coli] as the cause of diseases classified elsewhere; D63.8 Anemia in other chronic diseases classified elsewhere; E03.9 Hypothyroidism, unspecified; Z68.38 Body mass index [BMI] 38.0-38.9, adult; F20.9 Schizophrenia, unspecified; B35.6 Tinea cruris; E87.6 Hypokalemia; Z79.01 Long term (current) use of anticoagulants; E78.00 Pure hypercholesterolemia, unspecified; I49.3 Ventricular premature depolarization; Z90.710 Acquired absence of both cervix and uterus; L30.9 Dermatitis, unspecified
CPT/HCPCS: 36415; 71010; 74000; 76700; 80048; 80053; 81001; 82248; 82550; 82553; 83735; 83880; 84439; 84443; 84484; 85025; 86304; 87086; 87181; 93005; 93306; 94660; 94664; 94760; C9399; J0282; J8499

== ENCOUNTER → 2016-10-28 | Outpatient (CLI) | payer MEDICARE, MEDICAID ==
[~2016-10-28] MED LIST changes: +ABILIFY10 MG ORAL; +AMIODARONE HCL100 MG ORAL; +BYSTOLIC5 MG ORAL; +EDARBI80 MG ORAL; +LEVOTHYROXINE100 MCG ORAL; +NORVASC2.5 MG ORAL; +XARELTO20 MG ORAL
--- NOTE | 2016-11-05 13:59 | Diagnostic Imaging Report ---
Clinical Indication: Abdominal pain, history of ovarian carcinoma, history of bleeding Technique: Patient given oral contrast. IV administration nonionic contrast. Venous phase spiral acquisition obtained through the abdomen and pelvis. Multiplanar reconstructions were generated. Total dose length product 905 mGycm. CTDIvol(s) 19 mGy Comparison: 05/01/2008 Findings: There is a mass within the pelvis, which demonstrates a thick rim and a low-attenuation center. This measures 5.2 cm long axis dimension. It is immediately adjacent to and inseparable from the rectosigmoid junction. It is located on the right side of the colon. There is slight infiltration of the adjacent perisigmoid fat. There is trace ascites fluid over the dome of the liver and over the dome of the spleen. Opacities are seen within the omental fat anterior and to the left of the greater curvature of the stomach and anterior and inferior to the left hepatic lobe. This is not evident previously. The uterus and ovaries are absent. Lymphadenopathy is with nodes measuring up to 17 mm diameter. There is para-aortic and paracaval lymphadenopathy which was not evident previously, largest nodes having a long axis dimension of 17 mm. There are bilateral prominent although not frankly enlarged pelvic sidewall nodes which appear similar to the prior exam. The gallbladder is not visualized, presumed surgically absent. The liver is unremarkable. The bile ducts are nondilated. The pancreas is markedly atrophic and fatty replaced. The spleen, adrenals, left kidney are unremarkable. The right kidney demonstrates a subcentimeter interpolar region low-attenuation lesion which is too small to characterize. The appendix is not clearly demonstrated, but there are no findings to suggest acute appendicitis evident. No evidence of diverticulosis or diverticulitis. No small bowel distention or small bowel wall thickening. No free intraperitoneal air. There is a small sliding-type hiatal hernia. Stomach and duodenum appear unremarkable. There is a small left pleural effusion. The heart is enlarged. There are degenerative changes of the thoracic and lumbar spine. There is mild anterior wedging of the T11 and T12 vertebral bodies. There is extensive chronic postsurgical and posttraumatic abnormality of the right hip, also previously demonstrated. There is slight edema of the bilateral subcutaneous fat. There is a midline skin incision. Impression: 5.2 cm mass within the pelvis, with a thick rim and low-attenuation center, intimately associated with the right wall of the colon at the level of the rectosigmoid junction. 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 However, unusually intimate relationship with the colon raises the possibility that this could also be colonic pathology, such as an intramural abscess or an unusual subserosal colonic malignancy. There is also some slight surrounding inflammatory change of the surrounding soft tissues Pelvic and retroperitoneal lymphadenopathy, presumed metastatic Areas of increased attenuation of the upper abdominal omental fat, concerning for mesenteric implants from stated clinical history of ovarian malignancy Trace ascites, possibly malignant Surgically absent gallbladder Small left pleural effusion Cardiomegaly Mild anterior wedging of the T11 and T12 vertebral bodies,. Represent compression fracture deformities, of indeterminate age if so. Consider MRI if this is clinically relevant Chronic postsurgical and posttraumatic abnormalities of the right hip Slight edema of the subcutaneous fat Subcentimeter low-attenuation right renal lesion, too small to characterize, most likely benign simple cyst. No further followup necessary Other findings as noted, including small hiatal hernia, degenerative spondylosis The CT scanner at [facility] is accredited by the -- [employer] and the scans are performed using protocols designed to limit radiation exposure to as low as reasonably achievable to attain images of sufficient resolution adequate for diagnostic evaluation.
== END | disposition home or self-care (01) ==
LOC: CAT 07:34
DX: R10.9 Unspecified abdominal pain (principal)
CPT/HCPCS: 74177; Q9967